=== PATIENT | male | born 1945 | race Caucasian/White ===

== ENCOUNTER 2016-09-15 16:23 | Emergency (ER) | payer OTHER ==
[2016-09-15] VITALS (7 sets, daily range): BP systolic 130–158; BP diastolic 69–89; PULSE 90–99; RESP 16; TEMP 98.8; O2SAT 93–98
[~2016-09-15] VITALS: Ht 170.2 cm; Wt 68.0 kg
[~2016-09-15 16:23] MED LIST: ASPI81TA82 PO; INHALER PO; OXYC10TA8 PO; PANT40P IVP; TRAZ50TA4 PO; [UNRECOGNIZED DRUG - REMARK] PO
--- NOTE | 2016-09-15 16:39 | PD ---
HPI Chief Complaint: AMS Time Seen by Provider: 16:32 Travel History International Travel<30 days: No Contact w/Intl Traveler<30days: No History of Present Illness HPI 71yo M with PMH of COPD, TIA, IBS, Hep C presents to the ED with c/o not acting like himself today. Neighbor called EVAC because pt was walking around and seemed out of it. Pt states he does not remember doing that. states that she found him to be more aggressive than normal at about 12pm today. However, pt is back at baseline right now. Pt has been having cold symptoms with cough and nasal congestion and has been taking over the counter medications that he does not know the names of. Pt also takes oxycodone x2 daily and took it today. Denies any trauma, headache, visual changes, chest pain, sob, vomiting, abdominal pain, focal weakness or numbness. +Some nausea. PFSH Past Medical History Arthritis: Yes Asthma: No Autoimmune Disease: No Blood Disorders: No Anxiety: Yes Cancer: No Cardiovascular Problems: No High Cholesterol: Yes Chemotherapy: No COPD: No Diminished Hearing: No Endocrine: No Gastrointestinal Disorders: Yes GERD: No Genitourinary: No Hepatitis: Yes (HEP C ) Hiatal Hernia: No Musculoskeletal: Yes Neurologic: No Psychiatric: No Reproductive: No Respiratory: Yes (BRONCHITIS) Immunizations Current: Yes Radiation Therapy: No Sleep Apnea: No Ulcer: No Past Surgical History Abdominal Surgery: No Cardiac Surgery: No Ear Surgery: No Endocrine Surgery: No Eye Surgery: No Genitourinary Surgery: No Gynecologic Surgery: No Oral Surgery: No Thoracic Surgery: No Tonsillectomy: Yes Other Surgery: Yes (ESOPHAGEAL DILITATION X 2) Social History Alcohol Use: No Tobacco Use: No (QUIT 1995) Substance Use: No Allergies-Medications (Allergen,Severity, Reaction): Coded Allergies: Zosyn (Verified Allergy, Severe, HIVES, 09/15/16) Reported Meds & Prescriptions Reported Meds & Active Scripts Active Prednisone 20 Mg Tab 20 Mg PO BID 5 Days Levaquin (Levofloxacin) 750 Mg Tab 750 Mg PO DAILY 5 Days Ventolin Hfa 18 GM Inh (Albuterol Sulfate) 90 Mcg/Act Aer 2 Puff INH Q4H PRN Reported Oxycodone (Oxycodone HCl) 10 Mg Tab 10 Mg PO BID PRN Multi-Vitamin Daily (Multiple Vitamin) 1 Tab Tab 1 Tab PO DAILY Aspirin 81 Mg Tabdr 81 Mg PO DAILY Protonix (Pantoprazole Sodium) 40 Mg Inj 40 Mg IVP Q24H Trazodone Hcl (Trazodone HCl) 50 Mg Tab 50 Mg PO HS [Inhaler] 1 Puff PO Q4-6H [Prostate Medicine] 1 Tab PO HS Review of Systems Except as stated in HPI: all other systems reviewed are Neg Physical Exam Narrative GENERAL: 71yo M not in distress. SKIN: Warm and dry. HEAD: Atraumatic. Normocephalic. EYES: Pupils equal and round. No scleral icterus. No injection or drainage. ENT: No nasal bleeding or discharge. Mucous membranes pink and moist. NECK: Trachea midline. No JVD. CARDIOVASCULAR: Regular rate and rhythm. No murmur appreciated. RESPIRATORY: No accessory muscle use. Coarse breath sounds bilaterally. Mild expiratory wheezing. GASTROINTESTINAL: Abdomen soft, non-tender, nondistended. Hepatic and splenic margins not palpable. MUSCULOSKELETAL: No obvious deformities. No clubbing. No cyanosis. No edema. NEUROLOGICAL: Awake and alert. No obvious cranial nerve deficits. Motor grossly within normal limits. Normal speech. PSYCHIATRIC: Appropriate mood and affect; insight and judgment normal. Data Data Last Documented VS Vital Signs Date Time Temp Pulse Resp B/P Pulse Ox O2 Delivery O2 Flow Rate FiO2 09/15/16 20:57 85 16 153/85 95 09/15/16 18:45 Nasal Cannula 2 09/15/16 16:58 98.8 Orders Complete Blood Count With Diff (09/15/16 16:33) Basic Metabolic Panel (Bmp) (09/15/16 16:33) Troponin I (09/15/16 16:33) Iv Access Insert/Monitor (09/15/16 16:33) Electrocardiogram (09/15/16 16:33) Ecg Monitoring (09/15/16 16:33) Oximetry (09/15/16 16:33) Chest, Single Ap (09/15/16 16:33) Sodium Chloride 0.9% Flush (Ns Flush) (09/15/16 16:45) Methylprednisolone So Succ Inj (Solumedr (09/15/16 16:45) Albuterol-Ipratropium Neb (Duoneb Neb) (09/15/16 16:45) Ct Brain W/O Iv Contrast(Rout) (09/15/16 ) Magnesium (Mg) (09/15/16 16:33) Urinalysis - C+S If Indicated (09/15/16 17:52) Blood Culture (09/15/16 18:24) Lactic Acid Sepsis Protocol (09/15/16 18:24) Arterial Blood Gas (Abg) (09/15/16 ) Influenzae A/B Antigen (09/15/16 18:24) Levofloxacin 750 Mg Premix Inj (Levaquin (09/15/16 19:00) Labs Laboratory Tests Test 09/15/16 09/15/16 09/15/16 09/15/16 17:15 18:33 18:40 19:35 White Blood Count 21.8 TH/MM3 Red Blood Count 4.22 MIL/MM3 Hemoglobin 13.1 GM/DL Hematocrit 38.5 % Mean Corpuscular Volume 91.3 FL Mean Corpuscular Hemoglobin 31.0 PG Mean Corpuscular Hemoglobin 33.9 % Concent Red Cell Distribution Width 11.9 % Platelet Count 232 TH/MM3 Mean Platelet Volume 9.1 FL Neutrophils (%) (Auto) % Lymphocytes (%) (Auto) % Monocytes (%) (Auto) % Eosinophils (%) (Auto) % Basophils (%) (Auto) % Neutrophils # (Auto) TH/MM3 Lymphocytes # (Auto) TH/MM3 Monocytes # (Auto) TH/MM3 Eosinophils # (Auto) TH/MM3 Basophils # (Auto) TH/MM3 CBC Comment AUTO DIFF Differential Total Cells 100 Counted Neutrophils % (Manual) 85 % Band Neutrophils % 4 % Lymphocytes % 5 % Monocytes % 6 % Neutrophils # (Manual) 19.4 TH/MM3 Differential Comment FINAL DIFF MANUAL Platelet Estimate NORMAL Platelet Morphology Comment NORMAL Red Cell Morphology Comment NORMAL Sodium Level 146 MEQ/L Potassium Level 3.7 MEQ/L Chloride Level 111 MEQ/L Carbon Dioxide Level 28.6 MEQ/L Anion Gap 6 MEQ/L Blood Urea Nitrogen 17 MG/DL Creatinine 1.30 MG/DL Estimat Glomerular Filtration 54 ML/MIN Rate Random Glucose 87 MG/DL Calcium Level 8.4 MG/DL Magnesium Level 1.9 MG/DL Troponin I LESS THAN 0.02 NG/ML Blood Gas Puncture Site RT RADIAL Blood Gas Patient Temperature 98.6 Blood Gas HCO3 25 mmol/L Blood Gas Base Excess 0.6 mmol/L Blood Gas Oxygen Saturation 89 % Arterial Blood pH 7.38 Arterial Blood Partial 43 mmHG Pressure CO2 Arterial Blood Partial 69 mmHG Pressure O2 Arterial Blood Oxygen Content 16.3 Vol % Arterial Blood 1.5 % Carboxyhemoglobin Arterial Blood Methemoglobin 1.2 % Blood Gas Hemoglobin 13.0 G/DL Oxygen Delivery Device NONE Blood Gas Inspired Oxygen 21 % Lactic Acid Level 1.8 mmol/L Urine Color YELLOW Urine Turbidity SLIGHT Urine pH 5.5 Urine Specific [place] 1.019 Urine Protein TRACE mg/dL Urine Glucose (UA) NEG mg/dL Urine Ketones TRACE mg/dL Urine Occult Blood NEG Urine Nitrite NEG Urine Bilirubin NEG Urine Leukocyte Esterase NEG Urine RBC 0-3 /hpf Urine WBC 3-5 /hpf Urine Squamous Epithelial 6-8 /hpf Cells Urine Amorphous Sediment FEW Urine Bacteria NONE /hpf Microscopic Urinalysis Comment CULT NOT INDICATED MDM Medical Decision Making Medical Screen Exam Complete: Yes Emergency Medical Condition: Yes Interpretation(s) EKG: NSR 82bpm. Normal axis. No ST segment elevation or depression. Differential Diagnosis AMS secondary to medications vs. electrolyte abnormality vs. ICH COPD exacerbation vs. Pneumonia Narrative Course 71yo M with AMS today. As per , he was acting strange and aggressive. Pt is back to baseline now as per . Pt is AAOx3 and does not appear altered on my exam. VS stable. Pt had wheezing and coarse breath sound on exam so duonebs x3 and methylprednisolone 125mg IV given. Pt has COPD and has been having cold symptoms for 2 weeks. Labs reviewed, leukocytosis at 21.8. Denies any steroid use. Only source of infection on my exam is respiratory. Troponin negative. CXR showed hypoaerated lungs without evidence of consolidating airspace disease. Interstitial prominence left lung base. Although there is no consolidating airspace on radiology read, I evaluated the CXR and felt that left heart border appears hazy. Clinically I will treat for pneumonia. Pt given 750mg IV levaquin. UA showed no leukocyte or nitrite. Pt reevaluated at bedside. States he feels better after the treatments. Pt still with mild wheezing on exam. ABG on room air showed O2 sat 89%. Pt does not have oxygen at home. I would like to admit pt for observation for COPD exacerbation but pt is refusing to stay. Pt is speaking in complete sentences and not altered on my exam. I feel that pt has decision making capacity. AMA: The risks of leaving against medical advice without further evaluation treatment were discussed with the patient. These risks include cardiac dysfunction, cardiac dysrhythmia, possible heart attack, possible stroke or . The patient indicated understanding of these risks and appeared to have the capacity to make this decision. Diagnosis Primary Impression: COPD exacerbation Patient Instructions: General Instructions Departure Forms: Tests/Procedures Additional Instructions: Please follow up with your PMD in 1-2 days. Return to the ED if symptoms worsen. Med/Other Pt SpecificInfo: Prescription(s) given Scripts Prednisone 20 Mg Tab20 Mg PO BID 5 Days Ref 0 Prov:So Koo DO 09/15/16 Levofloxacin (Levaquin)750 Mg [id number] Mg PO DAILY 5 Days Ref 0 Prov:So Koo DO 09/15/16 Albuterol 18 GM Inh (Ventolin Hfa 18 GM Inh)90 Mcg/Act Aer2 Puff INH Q4H PRN ( SHORTNESS OF BREATH) #1 INHALER Ref 0 Prov:So Koo DO 09/15/16 Disposition: 07 AGAINST MEDICAL ADVICE Condition: Stable So Koo DO Sep 15, 2016 16:39
[2016-09-15] MEDS ORDERED: methylPREDNISolone SOD SUCC 125 MG/2 ML VIAL IVP ONE (16:45)
[2016-09-15] MEDS ORDERED: OXYC-395 PO (16:50)
[2016-09-15] MEDS ORDERED: ASPI1TAB69 PO (16:50)
[2016-09-15] MEDS ORDERED: MULT-65 PO (16:50)
--- NOTE | 2016-09-15 17:23 | RADHPO ---
EXAM DATE/TIME: 09/15/2016 16:39 [facility] COMPARISON: CHEST SINGLE AP, September 28, 2014, 22:49. INDICATIONS : Cough. MEDICAL HISTORY : None. SURGICAL HISTORY : None. ENCOUNTER: Initial ACUITY: 1 day PAIN SCORE: 0/10 LOCATION: Bilateral upper chest FINDINGS: The lungs are hypoaerated. There is mild interstitial prominence in the left base. Right lung is alonzo r. Heart and mediastinal structures appear stable. Osseous structures are intact. CONCLUSION: Hypoaerated lungs without evidence of consolidating airspace disease. Interstitial prominence left lung base. Khai Triana MD on September 15, 2016 at 17:19 Board Certified Radiologist. This report was verified electronically.
[2016-09-15 17:24] LABS: HEMATOCRIT 38.5 % (39.0-51.0); HEMO FLAGS AUTO DIFF; MEAN CELL VOLUME 91.3 FL (80.0-100.0); MEAN CORPUSCULAR HGB CONC 33.9 % (32.0-36.0); PLATELET COUNT 232 TH/MM3 (150-450); RED BLOOD COUNT 4.22 MIL/MM3 (4.50-5.90); RED CELL DISTRIBUTION WIDTH 11.9 % (11.6-17.2); WHITE BLOOD COUNT 21.8 TH/MM3 (4.0-11.0)
[2016-09-15] MEDS: RESP: ALBUTEROL 2.5 MG/IPRATROPIUM 0.5 MG NEB (SCH) INH ×2 (17:25→17:45)
[2016-09-15 17:29] LABS: CHLORIDE 111 MEQ/L (98-107); POTASSIUM 3.7 MEQ/L (3.5-5.1); SODIUM (NA) 146 MEQ/L (136-145)
[2016-09-15 17:32] LABS: ANION GAP 6 MEQ/L (5-15); BICARBONATE 28.6 MEQ/L (21.0-32.0); BLOOD UREA NITROGEN 17 MG/DL (7-18); MAGNESIUM 1.9 MG/DL (1.5-2.5)
[2016-09-15 17:35] LABS: GLOMERULAR FILTRATION RATE 54 ML/MIN (>89)
[2016-09-15 17:41] LABS: BANDS 4 % (0-6); NEUTROPHIL # MANUAL DIFF 19.4 TH/MM3 (1.8-7.7); PLATELET ESTIMATE SMEAR NORMAL (NORMAL); PLATELET MORPHOLOGY NORMAL (NORMAL); POLYS (SEG NEUTROPHILS) 85 % (16-70); SCAN/DIFF FINAL DIFF MANUAL; WBC DIFF SAMPLE 100
[2016-09-15] MEDS: SODIUM CHLORIDE 0.9% FLUSH 5 ML FLUSH IVF PRN ×2 (17:54→19:16)
--- NOTE | 2016-09-15 18:29 | RADHPO ---
EXAM DATE/TIME: 09/15/2016 18:01 [facility] COMPARISON: CT BRAIN W/O CONTRAST, September 19, 2014, 8:32. INDICATIONS : Altered mental status. RADIATION DOSE: 54.26 CTDIvol (mGy) MEDICAL HISTORY : Cerebrovascular disease. Chronic obstructive pulmonary disease. Diabetes mellitus type 2. SURGICAL HISTORY : None. ENCOUNTER: Initial ACUITY: 1 day PAIN SCALE: 0/10 LOCATION: cranial TECHNIQUE: Multiple contiguous axial images were obtained of the head. Using automated exposure control and adj ustment of the mA and/or kV according to patient size, radiation dose was kept as low as reasonably a chievable to obtain optimal diagnostic quality images. FINDINGS: CEREBRUM: The ventricles are normal for age. No evidence of midline shift, mass lesion, hemorrhage or acute in farction. No extra-axial fluid collections are seen. POSTERIOR FOSSA: The cerebellum and brainstem are intact. The 4th ventricle is midline. The cerebellopontine angle i s unremarkable. EXTRACRANIAL: The visualized portion of the orbits is intact. SKULL: The calvaria is intact. No evidence of skull fracture. CONCLUSION: Normal examination for a patient of this age. No significant change has occurred. Charly Thomas MD on September 15, 2016 at 18:27 Board Certified Radiologist. This report was verified electronically.
[2016-09-15 18:40] LABS: BLOOD GAS BASE EXCESS 0.6 mmol/L (-2-2); BLOOD GAS CARBOXYHEMOGLOBIN 1.5 % (0-4); BLOOD GAS HCO3 25 mmol/L (22-26); BLOOD GAS METHEMOGLOBIN 1.2 % (0-2); BLOOD GAS O2 HGB SATURATION 89 % (90-100); BLOOD GAS OXYGEN CONTENT 16.3 Vol % (12.0-20.0); BLOOD GAS PCO2 43 mmHG (38-42); BLOOD GAS PO2 69 mmHG (61-120); CRITICAL VALUE YES; DRAW SITE RT RADIAL; FIO2 21 %; NUMBER OF ARTERIAL PUNCTURES 1; STAT YES; TEMP CORR TO 98.6; ULNAR PULSE PRESENT
[2016-09-15] MEDS ORDERED: LEVOFLOXACIN 750 MG PREMIX INJ 150 ML IV ONE (19:00)
[2016-09-15] MEDS ORDERED: VENTAER INH (19:06)
[2016-09-15] MEDS ORDERED: LEVA750T PO (19:06)
[2016-09-15] MEDS ORDERED: PRED20 PO (19:06)
[2016-09-15 19:47] LABS: BLOOD, URINE NEG (NEG); GLUCOSE,URINE NEG (NEG); KETONE, URINE TRACE mg/dL (NEG); NITRITE,URINE NEG (NEG); PH, URINE 5.5 (5.0-8.5)
[2016-09-15 19:53] LABS: RBC, URINE 0-3 /hpf (0-3); URINE COLOR YELLOW (YELLW/STRAW)
[2016-09-15 19:54] LABS: COMMENT (UR) CULT NOT INDICATED; CULTURE IF INDICATED CULT NOT INDICATED
--- NOTE | 2016-09-17 07:28 | EKG ---
Date Performed: 09/15/2016 Time Performed: 17:13:00 PTAGE: 71 years EKG: Sinus rhythm Compared to the previous tracing R wave progression has improved Normal ECG PREVIOUS TRACING : 01/13/2016 16.15 DOCTOR: John Fried Interpretating Date/Time 09/17/2016 07:26:27
== END 2016-09-15 21:01 | disposition left against medical advice (07) ==
LOC: PHED 16:23
DX: J44.1 Chronic obstructive pulmonary disease with (acute) exacerbation (principal); R41.82 Altered mental status, unspecified; E78.00 Pure hypercholesterolemia, unspecified; B19.20 Unspecified viral hepatitis C without hepatic coma
CPT/HCPCS: 36600; 70450; 71010; 80048; 81001; 82805; 83605; 83735; 84484; 85007; 85027; 87040; 87804; 93005; 94640; 94664; 96365; 96366; 96375; 99285; J1956; J2930

== ENCOUNTER 2016-09-19 07:06 | Inpatient (IN) | payer MEDICAID, MEDICARE, OTHER ==
[~2016-09-19] VITALS: Ht 170.2 cm; Wt 72.3 kg
[2016-09-19] VITALS (8 sets, daily range): BP systolic 119–176; BP diastolic 57–95; PULSE 56–70; RESP 15–22; TEMP 95.7–97.8; O2SAT 95–97
[~2016-09-19 07:06] MED LIST changes: +ASPI1TAB69 PO; -ASPI81TA82 PO; +LEVA750T PO; +MULT-65 PO; +OXYC-395 PO; -OXYC10TA8 PO; +PRED20 PO; +VENTAER INH
[2016-09-19] MEDS ORDERED: SODIUM CHLOR 0.9% 1000 ML INJ 1,000 ML IV SCH (07:23)
[2016-09-19] MEDS ORDERED: TRAZ50TA12 PO (07:24)
[2016-09-19] MEDS ORDERED: HYDROmorphone HCL PF 2 MG/ML VIAL IVS ONE (07:30)
[2016-09-19] MEDS ORDERED: SODIUM CHLORIDE 0.9% FLUSH 5 ML FLUSH IVF PRN ×2 (07:30→16:45)
[2016-09-19] MEDS ORDERED: ONDANSETRON HCL 4 MG/2 ML VIAL IVP ONE (07:30)
--- NOTE | 2016-09-19 07:41 | PD ---
HPI Chief Complaint: Abdominal Pain Time Seen by Provider: 07:19 Travel History International Travel<30 days: No Contact w/Intl Traveler<30days: No Traveled to known affect area: No History of Present Illness HPI This is a 71-year-old man who presents to the emergency department complaining of severe abdominal pain. Pain is fairly generalized. It started abruptly this morning after drinking coffee. He never had it before. Some nausea but no vomiting. No chest pain or trouble breathing. He otherwise had been feeling generally well and healthy. He was seen for COPD exacerbation couple days ago and this is generally improving although he still has some symptoms. He was on a PPI in the past. He denies having history of reflux although he states he has to warm milk to drink it because of stomach cramps otherwise. His states he has reflux problems. His never pain like this with it. Denies any other new or worsening symptoms. History Past Medical History Narrative Medical Hepatitis C, status [facility] COPD History of esophageal strictures with impaction Social History Alcohol Use: Yes (occas drinks) Tobacco Use: No (QUIT 1996 smoked 2 ppd cigs) Allergies-Medications (Allergen,Severity, Reaction): Coded Allergies: Zosyn (Verified Allergy, Severe, HIVES, 09/19/16) Reported Meds & Prescriptions Reported Meds & Active Scripts Active Prednisone 20 Mg Tab 20 Mg PO BID 5 Days Levaquin (Levofloxacin) 750 Mg Tab 750 Mg PO DAILY 5 Days Ventolin Hfa 18 GM Inh (Albuterol Sulfate) 90 Mcg/Act Aer 2 Puff INH Q4H PRN Reported Trazodone (Trazodone HCl) 50 Mg Tab 50 Mg PO HS Oxycodone (Oxycodone HCl) 10 Mg Tab 10 Mg PO BID PRN Multi-Vitamin Daily (Multiple Vitamin) 1 Tab Tab 1 Tab PO DAILY Aspirin 81 Mg Tabdr 81 Mg PO DAILY [Prostate Medicine] 1 Tab PO HS Review of Systems Except as stated in HPI: all other systems reviewed are Neg Physical Exam Narrative GENERAL: 71-year-old man, appears uncomfortable, grimacing. SKIN: Warm and dry. HEAD: Atraumatic. Normocephalic. EYES: Pupils equal and round. No scleral icterus. No injection or drainage. ENT: No nasal bleeding or discharge. Mucous membranes pink and moist. NECK: Trachea midline. No JVD. CARDIOVASCULAR: Regular rate and rhythm. No murmur appreciated. RESPIRATORY: No accessory muscle use. Clear to auscultation. Breath sounds equal bilaterally. GASTROINTESTINAL: Abdomen soft flat, tense. He has epigastric tenderness. He has a lot of voluntary guarding but denies significant tenderness. States that it just hurts all over whether I palpate or not. MUSCULOSKELETAL: No obvious deformities. No edema. NEUROLOGICAL: Awake and alert. No obvious cranial nerve deficits. Motor grossly within normal limits. Normal speech. PSYCHIATRIC: Appropriate mood and affect; insight and judgment normal. Data Data Last Documented VS Vital Signs Date Time Temp Pulse Resp B/P Pulse Ox O2 Delivery O2 Flow Rate FiO2 09/19/16 09:47 57 18 149/79 96 Room Air 09/19/16 07:09 97.8 Orders Complete Blood Count With Diff (09/19/16 07:23) Comprehensive Metabolic Panel (09/19/16 07:23) Lipase (09/19/16 07:23) Lactic Acid (09/19/16 07:23) Prothrombin Time / Inr (Pt) (09/19/16 07:23) Act Partial Throm Time (Ptt) (09/19/16 07:23) Urinalysis - C+S If Indicated (09/19/16 07:23) Ct Abd/Pel W Iv Contrast(Rout) (09/19/16 07:23) Iv Access Insert/Monitor (09/19/16 07:23) Ecg Monitoring (09/19/16 07:23) Oximetry (09/19/16 07:23) NPO (09/19/16 07:23) Hydromorphone Pf Inj (Dilaudid Pf Inj) (09/19/16 07:30) Ondansetron Inj (Zofran Inj) (09/19/16 07:30) Sodium Chlor 0.9% 1000 Ml Inj (Ns 1000 M (09/19/16 07:23) Sodium Chloride 0.9% Flush (Ns Flush) (09/19/16 07:30) Electrocardiogram (09/19/16 07:23) Ed Poc Ultrasound (09/19/16 07:23) Iohexol 350 Inj (Omnipaque 350 Inj) (09/19/16 08:44) Us Abdomen Gallbladder (09/19/16 ) Admit Order (Ed Use Only) (09/19/16 ) Labs Laboratory Tests Test 09/19/16 09/19/16 07:30 09:16 White Blood Count 11.8 TH/MM3 Red Blood Count 4.46 MIL/MM3 Hemoglobin 13.9 GM/DL Hematocrit 41.0 % Mean Corpuscular Volume 92.0 FL Mean Corpuscular Hemoglobin 31.1 PG Mean Corpuscular Hemoglobin 33.9 % Concent Red Cell Distribution Width 12.3 % Platelet Count 252 TH/MM3 Mean Platelet Volume 9.8 FL Neutrophils (%) (Auto) 79.4 % Lymphocytes (%) (Auto) 15.6 % Monocytes (%) (Auto) 4.1 % Eosinophils (%) (Auto) 0.5 % Basophils (%) (Auto) 0.4 % Neutrophils # (Auto) 9.4 TH/MM3 Lymphocytes # (Auto) 1.8 TH/MM3 Monocytes # (Auto) 0.5 TH/MM3 Eosinophils # (Auto) 0.1 TH/MM3 Basophils # (Auto) 0.0 TH/MM3 CBC Comment DIFF FINAL Differential Comment Prothrombin Time 11.2 SEC Prothromb Time International 1.0 RATIO Ratio Activated Partial 24.9 SEC Thromboplast Time Sodium Level 141 MEQ/L Potassium Level 3.7 MEQ/L Chloride Level 107 MEQ/L Carbon Dioxide Level 23.8 MEQ/L Anion Gap 10 MEQ/L Blood Urea Nitrogen 26 MG/DL Creatinine 1.10 MG/DL Estimat Glomerular Filtration 66 ML/MIN Rate Random Glucose 116 MG/DL Lactic Acid Level 1.4 mmol/L Calcium Level 9.0 MG/DL Total Bilirubin 0.5 MG/DL Aspartate Amino Transf 12 U/L (AST/SGOT) Alanine Aminotransferase 19 U/L (ALT/SGPT) Alkaline Phosphatase 66 U/L Total Protein 7.4 GM/DL Albumin 3.7 GM/DL Lipase 303 U/L Urine Color YELLOW Urine Turbidity CLEAR Urine pH 5.5 Urine Specific [place] 1.032 Urine Protein NEG mg/dL Urine Glucose (UA) NEG mg/dL Urine Ketones NEG mg/dL Urine Occult Blood NEG Urine Nitrite NEG Urine Bilirubin NEG Urine Leukocyte Esterase NEG Urine WBC 0-2 /hpf Urine Squamous Epithelial 0-5 /hpf Cells Urine Bacteria OCC /hpf Urine Mucus FEW /lpf Microscopic Urinalysis Comment CULT NOT INDICATED MDM Medical Decision Making Medical Screen Exam Complete: Yes Emergency Medical Condition: Yes Interpretation(s) LABS: CBC remarkable for mild leukocytosis. CMP unremarkable. Lactate 1.4 Lipase normal Coags unremarkable CT abdomen and pelvis: Gallstone. Mild dilatation international hepatic biliary ducts. 1.2 severe hypodensity identified posterior aspect of right over the liver. On specific. Likely cyst or hemangioma. Clonic diverticula in the proximal sigmoid colon with thickening in this region likely related to hypertrophy. Significant surrounding inflammatory changes not seen. Gallbladder ultrasound: Gallstone. Mild dilatation the common bile duct. 1.3 cm solid mass in the right over the liver, recommend outpatient follow-up. Differential Diagnosis Pancreatitis, gastritis, aortic pathology, cholecystitis, other Narrative Course Medical decision making INITIAL: Is a 71-year-old male presents emergency Department uncomfortable with diffuse abdominal pain, although he seems to have more epigastric pain than anything else. He also seems to have some epigastric tenderness but this isn't at all clear. He's tensing a lot. Some concern for aortic pathology. I attempted a bedside ultrasound because of his guarding and some air in the bowels and was unable to obtain satisfactory use although grossly didn't see any AAA. We'll give pain medicine, fluids, CT, reassess. Suspect gastritis or pancreatitis. FINAL: Imaging shows a large gallbladder with stone in the neck with minimally thickened gallbladder wall and ultrasound, but not a lot of surrounding inflammatory change, or severe tenderness. I think however cholecystitis is best expiration for the patient's symptoms. I spoke with Dr. allyssa Coats, who is agreeable to admit the patient for cholecystectomy. Procedures Procedure Narrative Point of care ultrasound: Focus transabdominal ultrasounds performed at the bedside to evaluate for possible AAA. Due to guarding and bowel gas, was unable to obtain satisfactory views of the aorta. Diagnosis Primary Impression: Acute cholecystitis Kaleb Hough MD Sep 19, 2016 07:41
[2016-09-19 08:05] LABS: AUTOMATED NEUTROPHIL # 9.4 TH/MM3 (1.8-7.7); BASOPHIL % 0.4 % (0.0-2.0); EOSINOPHIL # 0.1 TH/MM3 (0-0.4); EOSINOPHIL % 0.5 % (0.0-4.0); LYMPH % 15.6 % (9.0-44.0); LYMPHOCYTE # 1.8 TH/MM3 (1.0-4.8); MEAN CORPUSCULAR HEMOGLOBIN 31.1 PG (27.0-34.0); MEAN CORPUSCULAR HGB CONC 33.9 % (32.0-36.0); MONO % 4.1 % (0.0-8.0); NEUT % 79.4 % (16.0-70.0); PLATELET COUNT 252 TH/MM3 (150-450); RED BLOOD COUNT 4.46 MIL/MM3 (4.50-5.90); RED CELL DISTRIBUTION WIDTH 12.3 % (11.6-17.2); WHITE BLOOD COUNT 11.8 TH/MM3 (4.0-11.0)
[2016-09-19 08:14] LABS: CHLORIDE 107 MEQ/L (98-107); POTASSIUM 3.7 MEQ/L (3.5-5.1); SODIUM (NA) 141 MEQ/L (136-145)
[2016-09-19 08:16] LABS: HEMO FLAGS DIFF FINAL
[2016-09-19 08:18] LABS: ANION GAP 10 MEQ/L (5-15); APTT (PATIENT) 24.9 SEC (24.3-30.1); BICARBONATE 23.8 MEQ/L (21.0-32.0); BLOOD UREA NITROGEN 26 MG/DL (7-18); PROTHROMBIN TIME - PATIENT 11.2 SEC (9.8-11.6)
[2016-09-19 08:21] LABS: ALT (GPT) 19 U/L (12-78); AST (GOT) 12 U/L (15-37); GLOMERULAR FILTRATION RATE 66 ML/MIN (>89)
[2016-09-19 08:23] LABS: TOTAL BILIRUBIN ADULT 0.5 MG/DL (0.2-1.0)
[2016-09-19 08:24] LABS: ALKALINE PHOSPHATASE 66 U/L (45-117)
[2016-09-19] MEDS ORDERED: IOHEXOL 350 MG/ML 10 ML VIAL (for RAD DIAG) IV ONE (08:44)
[2016-09-19 09:26] LABS: BLOOD, URINE NEG (NEG); GLUCOSE,URINE NEG (NEG); KETONE, URINE NEG (NEG); NITRITE,URINE NEG (NEG); PH, URINE 5.5 (5.0-8.5)
--- NOTE | 2016-09-19 09:26 | RADHPO ---
EXAM DATE/TIME: 09/19/2016 08:34 [facility] COMPARISON: No previous studies available for comparison. INDICATIONS: Diffuse abdominal pain. Nausea. IV CONTRAST: 85 cc Omnipaque 350 (iohexol) IV ORAL CONTRAST: No oral contrast ingested. RADIATION DOSE: 7.41 CTDIvol (mGy) MEDICAL HISTORY: Cerebrovascular disease. Chronic obstructive pulmonary disease. Hepatitis C. SURGICAL HISTORY: Esophageal dilatation. ENCOUNTER: Initial ACUITY: 1 day PAIN SCALE: 5/10 LOCATION: Diffuse abdomen. TECHNIQUE: Volumetric scanning of the abdomen and pelvis was performed. Using automated exposure control and ad justment of the mA and/or kV according to patient size, radiation dose was kept as low as reasonably achievable to obtain optimal diagnostic quality images. FINDINGS: There is a 1.2 cm hypodensity seen at the posterior aspect of the right lobe of the liver. It is non specific. Statistically it likely represents a cyst or hemangioma. There is mild dilatation of the central int rahepatic biliary ducts. The patient does have a gallstone seen in the gallbladder. The gallbladder is moderately dis tended. Significant inflammatory change around the gallbladder is not seen. The common bile duct is mildly p rominent measuring 9 mm. The pancreas, adrenals glands, spleen and kidneys appear grossly normal. Atheroscle rotic calcifications are seen throughout the arterial system but no aneurysm is seen. There are diverticula particularly in the proximal sigmoid colon. There is some thickening of the si gmoid colon in this region which could be related to hypertrophy. Significant surrounding inflammatory change is not seen. The bowel is otherwise unremarkable. The pelvic structures appear grossly intact. There is some mild increased density at the posterior medial left lung base. The right lung base is grossly clear. No focal bone lesions are seen. CONCLUSION: 1. Gallstone. 2. Mild dilatation of the intra and extrahepatic biliary ducts. This can be correlated with any pot ential signs of cholestasis. 3. A 1.2 cm hypodensity identified in the posterior aspect of the right lobe of the liver. This is nonspecific. Statistically it likely represents a cyst or hemangioma. 4. Colonic diverticula in the proximal sigmoid colon with thickening of this region likely related t o hypertrophy. Significant surrounding inflammatory change is not seen. 5. Minimal suspected consolidation or atelectasis at the posterior medial left lung base. Getachew Batres MD on September 19, 2016 at 9:09 Board Certified Radiologist. This report was verified electronically.
[2016-09-19 09:30] LABS: URINE COLOR YELLOW (YELLW/STRAW)
[2016-09-19 09:34] LABS: MUCUS URINE FEW /lpf (OCC)
[2016-09-19 09:35] LABS: BACTERIA, URINE OCC /hpf; COMMENT (UR) CULT NOT INDICATED; CULTURE IF INDICATED CULT NOT INDICATED; SQUAMOUS EPITHELIAL CELL URINE 0-5 /hpf (0-5); WBC, URINE 0-2 /hpf (0-5)
--- NOTE | 2016-09-19 10:05 | RADHPO ---
EXAM DATE/TIME: 09/19/2016 09:23 [facility] COMPARISON: CT ABDOMEN & PELVIS W CONTRAST, September 19, 2016, 8:34. INDICATIONS : Gallstones. MEDICAL HISTORY : Hypercholesterolemia. Chronic obstructive pulmonary disease. Arthritis. TIA. Prosthesis. Borderline d iabetes. Hep C. Depression. Anxiety. SURGICAL HISTORY : Tonsillectomy. Nose reconstruction. Pins in right knee. Rods in left lower leg. Plate top of left foot. Esophageal dilation. ENCOUNTER: Initial ACUITY: 1 day PAIN SCORE: 10/10 LOCATION: Right upper quadrant MEASUREMENTS: LIVER: 17.2 cm length COMMON DUCT: 9 mm RIGHT KIDNEY: 10.8 x 4.5 x 4.6 cm FINDINGS: LIVER: The liver demonstrates normal echotexture. There is a 1.3 cm hypoechoic solid mass in the right lobe corresponding to the mass seen on the CT. This is not a cyst. COMMON DUCT: A. common bile duct is mildly distended at 9 mm. No focal filling defect is seen. GALLBLADDER: There is a 1.5 cm gallstone seen in the gallbladder neck. The gallbladder wall is upper limits of nor mal for thickness. PANCREAS: The visualized portions are within normal limits. RIGHT KIDNEY: No evidence of hydronephrosis, stone, or mass. CONCLUSION: 1. Gallstone 2. Mild dilatation of common bile duct. 3. 1.3 cm solid mass in the right lobe of the liver. The solid mass could be further evaluated with a MRI examination of the abdomen at some point. This could be performed as an outpatient. Getachew Batres MD on September 19, 2016 at 9:58 Board Certified Radiologist. This report was verified electronically.
[2016-09-19] MEDS ORDERED: HYDROmorphone HCL PF 1 MG/ML VIAL IV PUSH ONE (12:15)
[2016-09-19] MEDS ORDERED: NALOXONE HCL 0.4 MG/ML AMP IV PRN (16:45)
[2016-09-19] MEDS ORDERED: ONDANSETRON HCL 4 MG/2 ML VIAL IV PRN (16:45)
[2016-09-19] MEDS ORDERED: Post-op Orders (for Pharmacy) MISC XX ONE (16:45)
[2016-09-19] MEDS: MORPHINE SULFATE 4 MG/ML INJ IV PRN ×2 (17:23→21:10)
[2016-09-19] MEDS: PANTOPRAZOLE SOD 40 MG DELAYED RELEASE TAB PO SCH (17:23)
[2016-09-19] MEDS: SODIUM CHLOR 0.9% 1000 ML INJ 1,000 ML IV SCH (17:24)
[2016-09-19] MEDS: SODIUM CHLORIDE 0.9% FLUSH 5 ML FLUSH IVF SCH (20:12)
--- NOTE | 2016-09-19 20:15 | MH ---
cc: MD KAILASH,[facility] DATE OF ADMISSION: 09/19/2016 ADMITTING DIAGNOSIS: 1. Abdominal pain. 2. Cholelithiasis. 3. Nausea and vomiting. 4. COPD. HISTORY OF PRESENT ILLNESS: This 71-year-old male comes to the emergency room complaining about severe abdominal pain that started suddenly this morning after he had coffee. Nausea but no vomiting. The patient states the pain is sort of all over the abdomen, mainly in the midline and slightly to the left, not actually to the right. He states he has a history of duodenitis and has been drinking warm milk when he gets stomach cramps. He also has reflux. The question arises about possible biliary colic. PAST MEDICAL HISTORY: 1. Hepatitis C. The patient was treated with Harvoni. 2. History of COPD. 3. Esophageal strictures with extraction of foreign bodies in the past. 4. History of duodenitis and gastritis diagnosed last year when he had a gastroscopy by Dr. Saxena. SOCIAL HISTORY: The patient drinks socially. He used to smoke heavily until about 20 years ago and stopped. MEDICATIONS: 1. Trazodone. 2. Oxycodone twice a day. 3. Aspirin. PHYSICAL EXAMINATION: GENERAL: The physical examination reveals a 71-year-old gentleman in no acute distress. He is at this point in no pain. HEAD, EYES, EARS, NOSE, THROAT: Normocephalic. No trauma to the head. Pupils equal and reactive. Extraocular muscles intact. NECK: Bilateral carotid pulses. No bruits. CHEST: Bilateral breath sounds. HEART: Regular rhythm. ABDOMEN: Abdomen is soft. Active bowel sounds. The patient is not tender right now. No rebound. No guarding. But apparently he had voluntary guarding earlier when examined by the emergency room physician. On very deep palpation, I could elicit some pain just left of the midline and epigastrium. EXTREMITIES: Within normal limits. BACK: Normal. NEUROLOGIC: The patient is intact. IMPRESSION AND RECOMMENDATIONS: A 71-year-old gentleman with the above history and then CT of the abdomen findings with an 8 mm stone in the gallbladder; however, no thickening of the gallbladder and no signs of acute cholecystitis. Ultrasound shows the same and no thickening or acute changes; hence, probably cholelithiasis and possible biliary colic. At this point on one hand, I do not want to leave the patient without surgery if needs one. On the other hand, I am not quite sure that the gallbladder has anything to do with his pain. Therefore, I believe it is reasonable to do a HIDA scan and see which way this goes and decide which course to take. The patient will be admitted, will have a HIDA scan and we will go from there. Lorraine NASCIMENTO/KATERINA /7:55 PM /8:06 PM
--- NOTE | 2016-09-19 21:45 | EKG ---
Date Performed: 09/19/2016 Time Performed: 07:45:10 PTAGE: 71 years EKG: Sinus rhythm Normal ECG PREVIOUS TRACING : 09/15/2016 17.13 NO SIGNIFICANT CHANGE FROM PRIOR ELECTROCARDIOGRAM. DOCTOR: Graham Kim Interpretating Date/Time 09/19/2016 21:44:14
[2016-09-20] VITALS: BP 127/76; PULSE 57; RESP 20; TEMP 97.9; O2SAT 95
[2016-09-20] MEDS: MORPHINE SULFATE 4 MG/ML INJ IV PRN ×2 (01:34→05:39)
[2016-09-20 05:01] LABS: AUTOMATED NEUTROPHIL # 6.9 TH/MM3 (1.8-7.7); BASOPHIL % 0.4 % (0.0-2.0); EOSINOPHIL # 0.1 TH/MM3 (0-0.4); EOSINOPHIL % 1.1 % (0.0-4.0); HEMATOCRIT 37.8 % (39.0-51.0); HEMO FLAGS DIFF FINAL; LYMPH % 28.3 % (9.0-44.0); LYMPHOCYTE # 3.2 TH/MM3 (1.0-4.8); MEAN CELL VOLUME 92.9 FL (80.0-100.0); MEAN CORPUSCULAR HEMOGLOBIN 31.1 PG (27.0-34.0); MEAN CORPUSCULAR HGB CONC 33.4 % (32.0-36.0); MONO % 8.3 % (0.0-8.0); NEUT % 61.9 % (16.0-70.0); PLATELET COUNT 204 TH/MM3 (150-450); RED BLOOD COUNT 4.06 MIL/MM3 (4.50-5.90); RED CELL DISTRIBUTION WIDTH 13.2 % (11.6-17.2); WHITE BLOOD COUNT 11.2 TH/MM3 (4.0-11.0)
[2016-09-20 05:15] LABS: BICARBONATE 25.7 MEQ/L (21.0-32.0)
[2016-09-20 05:18] LABS: INDIRECT BILIRUBIN 0.6 MG/DL (0.0-0.8); TOTAL BILIRUBIN ADULT 0.7 MG/DL (0.2-1.0)
[2016-09-20] MEDS: SODIUM CHLOR 0.9% 1000 ML INJ 1,000 ML IV SCH ×3 (05:39→21:34)
[2016-09-20 08:00] VITALS: BP 122/80; PULSE 53; RESP 14; TEMP 98.3; O2SAT 96
[2016-09-20] MEDS: oxyCODONE/ACETAMINOPHEN 5 MG/325 MG TAB PO PRN ×4 (08:46→22:36)
[2016-09-20] MEDS: SODIUM CHLORIDE 0.9% FLUSH 5 ML FLUSH IVF SCH ×2 (09:00→21:34)
[2016-09-20 12:00] VITALS: BP 152/91; PULSE 62; RESP 17; TEMP 98.1; O2SAT 99
--- NOTE | 2016-09-20 13:27 | PD.CAR.PN ---
CVT Progress Note Subjective/Hospital Course: 09/20/16 Patient suspected the biliary colic versus calculus cholecystitis. Abdomen soft with active bowel sounds and now not tender to palpation Patient some pain medicine few hours ago but hasn't had pain since. Awaiting HIDA scan to evaluate the patient and if positive patient will need laparoscopic cholecystectomy Objective: Vital Signs Date Time Temp Pulse Resp B/P Pulse Ox O2 Delivery O2 Flow Rate FiO2 09/20/16 12:00 98.1 62 17 152/91 99 09/20/16 08:00 98.3 53 14 122/80 96 09/20/16 00:00 97.9 57 20 127/76 95 09/19/16 20:00 97.8 69 20 143/84 96 09/19/16 16:00 95.7 63 15 147/82 97 09/19/16 15:10 56 18 119/57 97 Room Air Labs: Laboratory Tests Test 09/20/16 04:09 White Blood Count 11.2 TH/MM3 (4.0-11.0) Red Blood Count 4.06 MIL/MM3 (4.50-5.90) Hemoglobin 12.6 GM/DL (13.0-17.0) Hematocrit 37.8 % (39.0-51.0) Mean Corpuscular Volume 92.9 FL (80.0-100.0) Mean Corpuscular Hemoglobin 31.1 PG (27.0-34.0) Mean Corpuscular Hemoglobin 33.4 % Concent (32.0-36.0) Red Cell Distribution Width 13.2 % (11.6-17.2) Platelet Count 204 TH/MM3 (150-450) Mean Platelet Volume 9.7 FL (7.0-11.0) Neutrophils (%) (Auto) 61.9 % (16.0-70.0) Lymphocytes (%) (Auto) 28.3 % (9.0-44.0) Monocytes (%) (Auto) 8.3 % (0.0-8.0) Eosinophils (%) (Auto) 1.1 % (0.0-4.0) Basophils (%) (Auto) 0.4 % (0.0-2.0) Neutrophils # (Auto) 6.9 TH/MM3 (1.8-7.7) Lymphocytes # (Auto) 3.2 TH/MM3 (1.0-4.8) Monocytes # (Auto) 0.9 TH/MM3 (0-0.9) Eosinophils # (Auto) 0.1 TH/MM3 (0-0.4) Basophils # (Auto) 0.0 TH/MM3 (0-0.2) CBC Comment DIFF FINAL Differential Comment Sodium Level 141 MEQ/L (136-145) Potassium Level 4.0 MEQ/L (3.5-5.1) Chloride Level 108 MEQ/L (98-107) Carbon Dioxide Level 25.7 MEQ/L (21.0-32.0) Anion Gap 7 MEQ/L (5-15) Blood Urea Nitrogen 13 MG/DL (7-18) Creatinine 0.88 MG/DL (0.60-1.30) Estimat Glomerular Filtration 85 ML/MIN (>89) Rate Random Glucose 94 MG/DL (74-106) Calcium Level 8.1 MG/DL (8.5-10.1) Total Bilirubin 0.7 MG/DL (0.2-1.0) Direct Bilirubin 0.1 MG/DL (0.0-0.2) Indirect Bilirubin 0.6 MG/DL (0.0-0.8) Aspartate Amino Transf 7 U/L (15-37) (AST/SGOT) Alanine Aminotransferase 15 U/L (12-78) (ALT/SGPT) Alkaline Phosphatase 51 U/L (45-117) Total Protein 5.7 GM/DL (6.4-8.2) Albumin 3.0 GM/DL (3.4-5.0) Result Diagram: 09/20/16 0409 09/20/16 0409 Lorraine Sesay MD Sep 20, 2016 13:27
--- NOTE | 2016-09-20 14:31 | RADRPT ---
EXAM DATE/TIME: 09/20/2016 12:01 [place] COMPARISON: No previous studies available for comparison. INDICATIONS : Abdominal pain with nausea. DOSE: 4.2 mCi Tc99m Mebrofenin IV MEDICAL HISTORY : Chronic obstructive pulmonary disease. Diabetes mellitus type 2. SURGICAL HISTORY : Tonsillectomy. Left leg. ENCOUNTER: Initial ACUITY: 2 days PAIN SCALE: 8/10 LOCATION: Right upper quadrant TECHNIQUE: Following the intravenous administration of radiotracer, dynamic sequential images were performed wit h continuous acquisition. FINDINGS: HEPATIC KINETICS: There is prompt uptake of radiotracer in the liver. No focal defects are seen. There is normal rate of washout from the hepatic parenchyma. BILIARY CLEARANCE: Activity is first seen in the extrahepatic biliary system at 10 minutes. There is normal excretion i nto the small bowel. GALLBLADDER: Activity is first seen in the gallbladder at 60 minutes. Common bile duct kinetics are normal and th ere is no evidence of biliary obstruction. BILIARY ENTRIC REFLUX: None observed. CONCLUSION: 1. No evidence of acute cholecystitis. 2. There is some delayed uptake of tracer activity in the gallbladder at 60 minutes. This is nonspeci fic but can be seen with chronic gallbladder disease. Charly Thomas MD on September 20, 2016 at 14:28 Board Certified Radiologist. This report was verified electronically.
[2016-09-20 16:00] VITALS: BP 164/98; PULSE 68; RESP 17; TEMP 98.2; O2SAT 96
[2016-09-20] MEDS: PANTOPRAZOLE SOD 40 MG DELAYED RELEASE TAB PO SCH (16:20)
[2016-09-20 20:00] VITALS: BP 126/71; PULSE 68; RESP 20; TEMP 97.2; O2SAT 95
[2016-09-21 00:07] VITALS: BP 130/79; PULSE 58; RESP 20; TEMP 97.8; O2SAT 95
[2016-09-21] MEDS: oxyCODONE/ACETAMINOPHEN 5 MG/325 MG TAB PO PRN ×3 (03:20→11:39)
[2016-09-21 08:00] VITALS: BP 145/79; PULSE 60; RESP 16; TEMP 96.6; O2SAT 99
[2016-09-21] MEDS: SODIUM CHLORIDE 0.9% FLUSH 5 ML FLUSH IVF SCH (09:00)
[2016-09-21] MEDS: SODIUM CHLOR 0.9% 1000 ML INJ 1,000 ML IV SCH (09:14)
[2016-09-21 12:00] VITALS: BP 174/96; PULSE 61; RESP 17; TEMP 97.2; O2SAT 97
--- NOTE | 2016-09-21 13:58 | PD.CAR.PN ---
CVT Progress Note Subjective/Hospital Course: 09/20/16 Patient suspected the biliary colic versus calculus cholecystitis. Abdomen soft with active bowel sounds and now not tender to palpation Patient some pain medicine few hours ago but hasn't had pain since. Awaiting HIDA scan to evaluate the patient and if positive patient will need laparoscopic cholecystectomy 09/21/16 VSS Abdomen soft nontender. Tolerating diet HIDA - DC patient today with FU He still may have had a biliary colic and only future will tell if the pain returns, or was unrelated. Objective: Vital Signs Date Time Temp Pulse Resp B/P Pulse Ox O2 Delivery O2 Flow Rate FiO2 09/21/16 12:00 97.2 61 17 174/96 97 09/21/16 08:00 96.6 60 16 145/79 99 09/21/16 00:07 97.8 58 20 130/79 95 09/20/16 20:00 97.2 68 20 126/71 95 09/20/16 16:00 98.2 68 17 164/98 96 Result Diagram: 09/20/16 0409 09/20/16 0409 Lorraine Sesay MD Sep 21, 2016 13:58
[2016-09-21] MEDS ORDERED: SUCRALFATE 1 GM/10 ML CUP PO ONE (14:15)
== END 2016-09-21 14:37 | disposition home or self-care (01) | DRG 446 ==
LOC: PHED 07:06 → PHEDA 09:56 → N07B 15:52
PROVIDERS: ADMIT Surgery; ATTEND Surgery
DX: K80.80 Other cholelithiasis without obstruction (principal); J44.9 Chronic obstructive pulmonary disease, unspecified; E11.9 Type 2 diabetes mellitus without complications; K29.70 Gastritis, unspecified, without bleeding; K29.80 Duodenitis without bleeding; Z79.82 Long term (current) use of aspirin; Z86.19 Personal history of other infectious and parasitic diseases; Z87.891 Personal history of nicotine dependence
CPT/HCPCS: 74177; 76705; 78226; 80048; 80053; 80076; 81001; 83605; 83690; 85025; 85610; 85730; 93005; 94150; 96361; 96374; 96375; A9537; J1170; J2270; J2405; J7030; Q9967

== ENCOUNTER 2017-12-21 04:11 | Emergency (ER) | payer MEDICAID, MEDICARE, OTHER ==
[~2017-12-21] VITALS: Ht 170.2 cm; Wt 73.1 kg
[~2017-12-21 04:11] MED LIST changes: -INHALER PO; -LEVA750T PO; -PANT40P IVP; +TRAZ50TA12 PO; -TRAZ50TA4 PO
[2017-12-21 04:15] VITALS: BP 166/105; PULSE 72; RESP 18; TEMP 97.8; O2SAT 97
[2017-12-21] MEDS ORDERED: ASPI81CH6 CHEW (04:31)
--- NOTE | 2017-12-21 04:37 | PD ---
HPI Chief Complaint: Abdominal Pain Time Seen by Provider: 04:29 Travel History International Travel<30 days: No Contact w/Intl Traveler<30days: No Traveled to known affect area: No History of Present Illness HPI patient is a 72 year old male presents to the ER with epigastric pain radiating to his back on and off for the past four days. patient states only mild nausea , no vomiting no diarrhea, no dysuria, no chest pain. States never had pain like this before. Gradually worsening overall and came in tonight for evaluation. Symptoms moderate to severe, epigastric, radiation to back, duration as above. PFSH Past Medical History Arthritis: Yes Asthma: No Autoimmune Disease: No Blood Disorders: No Anxiety: Yes Depression: Yes Cancer: No Cardiovascular Problems: No High Cholesterol: Yes Chemotherapy: No COPD: Yes Cerebrovascular Accident: Yes (tia) Diminished Hearing: No Endocrine: No Gastrointestinal Disorders: Yes GERD: No Genitourinary: No Hepatitis: Yes (hx of HEP C ) Hiatal Hernia: No Musculoskeletal: Yes Neurologic: No Psychiatric: No Reproductive: No Respiratory: Yes (COPD) Immunizations Current: Yes Radiation Therapy: No Sleep Apnea: No Ulcer: No Past Surgical History Abdominal Surgery: No Cardiac Surgery: No Ear Surgery: No Endocrine Surgery: No Eye Surgery: No Genitourinary Surgery: No Gynecologic Surgery: No Oral Surgery: Yes (nose reconstruction) Thoracic Surgery: No Tonsillectomy: Yes Other Surgery: Yes (ESOPHAGEAL DILITATION X 2) Social History Alcohol Use: Yes (occas drinks) Tobacco Use: No (QUIT 1996 smoked 2 ppd cigs) Substance Use: No Allergies-Medications (Allergen,Severity, Reaction): Coded Allergies: morphine (Verified Allergy, Severe, 12/22/17) piperacillin (Unverified Allergy, Severe, HIVES, 12/22/17) tazobactam (Unverified Allergy, Severe, HIVES, 12/22/17) Reported Meds & Prescriptions Reported Meds & Active Scripts Active Ventolin Hfa 18 GM Inh (Albuterol Sulfate) 90 Mcg/Act Aer 2 Puff INH Q4H PRN Reported Claritin (Loratadine) 10 Mg Cap 10 Mg PO DAILY Aspirin Low Dose (Aspirin) 81 Mg Chew 81 Mg CHEW DAILY Trazodone (Trazodone HCl) 50 Mg Tab 100 Mg PO HS Oxycodone (Oxycodone HCl) 10 Mg Tab 10 Mg PO BID PRN Multi-Vitamin Daily (Multiple Vitamin) 1 Tab Tab 1 Tab PO DAILY [Prostate Medicine] 1 Tab PO HS Review of Systems Except as stated in HPI: all other systems reviewed are Neg Physical Exam Narrative GENERAL: WD/WN clutching abdomen and grunting. SKIN: Warm and dry. HEAD: Atraumatic. Normocephalic. EYES: Pupils equal and round. No scleral icterus. No injection or drainage. ENT: No nasal bleeding or discharge. Mucous membranes pink and moist. NECK: Trachea midline. No JVD. CARDIOVASCULAR: Regular rate and rhythm. 2+ bilaterally equal pulses in all four extremities. No MGR. RESPIRATORY: No accessory muscle use. Clear to auscultation. Breath sounds equal bilaterally. GASTROINTESTINAL: Abdomen soft, non-tender, nondistended. Hepatic and splenic margins not palpable. No rebound nor percussive tenderness, no CVA tenderness. MUSCULOSKELETAL: Extremities without clubbing, cyanosis, or edema. No obvious deformities. NEUROLOGICAL: Awake and alert. No obvious cranial nerve deficits. Motor grossly within normal limits. Five out of 5 muscle strength in the arms and legs. Normal speech. PSYCHIATRIC: Appropriate mood and affect; insight and judgment normal. Data Data Last Documented VS Vital Signs Date Time Temp Pulse Resp B/P (MAP) Pulse Ox O2 Delivery O2 Flow Rate FiO2 12/21/17 07:14 82 18 150/70 (96) 96 Orders Orders Complete Blood Count With Diff (12/21/17 04:36) Comprehensive Metabolic Panel (12/21/17 04:36) Lipase (12/21/17 04:36) Prothrombin Time / Inr (Pt) (12/21/17 04:36) Act Partial Throm Time (Ptt) (12/21/17 04:36) Urinalysis - C+S If Indicated (12/21/17 04:36) Iv Access Insert/Monitor (12/21/17 04:36) Ecg Monitoring (12/21/17 04:36) Oximetry (12/21/17 04:36) Sodium Chloride 0.9% Flush (Ns Flush) (12/21/17 04:45) Ketorolac Inj (Toradol Inj) (12/21/17 04:45) Hydromorphone Pf Inj (Dilaudid Pf Inj) (12/21/17 05:15) Ondansetron Odt (Zofran Odt) (12/21/17 05:15) Cta Thor Abd Aorta W Iv C W3d (12/21/17 ) Lactic Acid (12/21/17 05:30) Iohexol 350 Inj (Omnipaque 350 Inj) (12/21/17 06:09) Ed Discharge Order (12/21/17 06:56) Electrocardiogram (12/21/17 04:46) Labs Laboratory Tests Test 12/21/17 04:40 12/21/17 05:35 12/21/17 06:15 White Blood Count 10.7 TH/MM3 Red Blood Count 4.31 MIL/MM3 Hemoglobin 14.1 GM/DL Hematocrit 40.5 % Mean Corpuscular Volume 93.9 FL Mean Corpuscular Hemoglobin 32.8 PG Mean Corpuscular Hemoglobin Concent 34.9 % Red Cell Distribution Width 12.4 % Platelet Count 181 TH/MM3 Mean Platelet Volume 9.4 FL Neutrophils (%) (Auto) 70.1 % Lymphocytes (%) (Auto) 17.1 % Monocytes (%) (Auto) 7.8 % Eosinophils (%) (Auto) 3.6 % Basophils (%) (Auto) 1.4 % Neutrophils # (Auto) 7.5 TH/MM3 Lymphocytes # (Auto) 1.8 TH/MM3 Monocytes # (Auto) 0.8 TH/MM3 Eosinophils # (Auto) 0.4 TH/MM3 Basophils # (Auto) 0.2 TH/MM3 CBC Comment DIFF FINAL Differential Comment Prothrombin Time 10.6 SEC Prothromb Time International Ratio 1.0 RATIO Activated Partial Thromboplast Time 25.2 SEC Blood Urea Nitrogen 20 MG/DL Creatinine 0.96 MG/DL Random Glucose 125 MG/DL Total Protein 7.2 GM/DL Albumin 3.8 GM/DL Calcium Level 8.7 MG/DL Alkaline Phosphatase 68 U/L Aspartate Amino Transf (AST/SGOT) 32 U/L Alanine Aminotransferase (ALT/SGPT) 27 U/L Total Bilirubin 0.8 MG/DL Sodium Level 140 MEQ/L Potassium Level 4.2 MEQ/L Chloride Level 107 MEQ/L Carbon Dioxide Level 24.4 MEQ/L Anion Gap 9 MEQ/L Estimat Glomerular Filtration Rate 77 ML/MIN Lipase 153 U/L Lactic Acid Level 2.5 mmol/L Urine Color YELLOW Urine Turbidity CLEAR Urine pH 5.5 Urine Specific [place] 1.010 Urine Protein NEG mg/dL Urine Glucose (UA) NEG mg/dL Urine Ketones NEG mg/dL Urine Occult Blood NEG Urine Nitrite NEG Urine Bilirubin NEG Urine Urobilinogen 0.2 mg/dL Urine Leukocyte Esterase NEG Urine WBC 0-2 /hpf Microscopic Urinalysis Comment CULT NOT INDICATED MDM Medical Decision Making Medical Screen Exam Complete: Yes Emergency Medical Condition: Yes Differential Diagnosis Aortic dissection, pancreatitis, cholecystitis, gastritis, abdominal wall spasm , kidney stone. Narrative Course Patient roomed in ER, drove here so toradol given while workup in progress. The spasmodic nature of his pain and location raises possibility of aortic pathology. Patient unresponsive to toradol and dissapointed with the lack of pain control wanted to leave. I convinced him to stay and for stronger pain medication if he can find a ride home. He agrees not to drive home. Dilaudid given with complete pain relief. Labs are reassuring ct scan only significant for cholelithiasis without cholecystitis: Last 24 hours Impressions Aorta CTA 12/21/17 0000 Signed Impressions: CONCLUSION: 1. Marked atherosclerotic disease. No evidence of dissection. No significant a neurysm other than prominence of the right common iliac artery measuring 1.7 cm across. Gallstone. Sigmoid diverticulosis. Patient reassured. Discussed need for follow up with director of land acquisition and general surgeon for consideration of cholecystectomy. Otherwise his pain well under control and a repeat abdominal exam benign he is stable for discharge. Diagnosis Primary Impression: Abdominal pain Additional Impression: Gallstone Referrals: Mark Pizarro MD Patient Instructions: Abdominal Pain in Children (DC), General Instructions Additional Instructions: Follow up with your regular physician. Stay bland on your diet for a few days. Return to the ER any time you have concerns that you have a medical emergency. Disposition: 01 DISCHARGE HOME Condition: Stable Luke Sahu MD Dec 21, 2017 04:37
[2017-12-21] MEDS ORDERED: KETOROLAC TROMETHAMINE 30 MG/ML (IVP) VIAL IVP ONE (04:45)
[2017-12-21] MEDS ORDERED: SODIUM CHLORIDE 0.9% FLUSH 10 ML FLUSH IV FLUSH PRN (04:45)
[2017-12-21 04:57] LABS: AUTOMATED NEUTROPHIL # 7.5 TH/MM3 (1.8-7.7); BASOPHIL # 0.2 TH/MM3 (0-0.2); BASOPHIL % 1.4 % (0.0-2.0); EOSINOPHIL # 0.4 TH/MM3 (0-0.4); EOSINOPHIL % 3.6 % (0.0-4.0); HEMATOCRIT 40.5 % (39.0-51.0); HEMOGLOBIN 14.1 GM/DL (13.0-17.0); LYMPH % 17.1 % (9.0-44.0); LYMPHOCYTE # 1.8 TH/MM3 (1.0-4.8); MEAN CELL VOLUME 93.9 FL (80.0-100.0); MEAN CORPUSCULAR HEMOGLOBIN 32.8 PG (27.0-34.0); MEAN CORPUSCULAR HGB CONC 34.9 % (32.0-36.0); MEAN PLATELET VOLUME 9.4 FL (7.0-11.0); MONO % 7.8 % (0.0-8.0); MONOCYTE # 0.8 TH/MM3 (0-0.9); NEUT % 70.1 % (16.0-70.0); PLATELET COUNT 181 TH/MM3 (150-450); RED BLOOD COUNT 4.31 MIL/MM3 (4.50-5.90); RED CELL DISTRIBUTION WIDTH 12.4 % (11.6-17.2); WHITE BLOOD COUNT 10.7 TH/MM3 (4.0-11.0)
[2017-12-21 05:11] LABS: CHLORIDE 107 MEQ/L (98-107); SODIUM (NA) 140 MEQ/L (136-145)
[2017-12-21 05:15] LABS: ALBUMIN 3.8 GM/DL (3.4-5.0); BICARBONATE 24.4 MEQ/L (21.0-32.0); CALCIUM 8.7 MG/DL (8.5-10.1); GLUCOSE,RANDOM 125 MG/DL (74-106)
[2017-12-21] MEDS ORDERED: ONDANSETRON ODT 4 MG TAB PO ONE (05:15)
[2017-12-21] MEDS ORDERED: HYDROmorphone HCL PF 2 MG/ML VIAL IV PUSH ONE (05:15)
[2017-12-21 05:16] LABS: BLOOD UREA NITROGEN 20 MG/DL (7-18)
[2017-12-21 05:18] LABS: ALT (GPT) 27 U/L (12-78); AST (GOT) 32 U/L (15-37); PROTHROMBIN TIME - PATIENT 10.6 SEC (9.8-11.6)
[2017-12-21 05:19] LABS: CREATININE 0.96 MG/DL (0.60-1.30); GLOMERULAR FILTRATION RATE 77 ML/MIN (>89)
[2017-12-21 05:20] LABS: TOTAL BILIRUBIN ADULT 0.8 MG/DL (0.2-1.0); TOTAL PROTEIN 7.2 GM/DL (6.4-8.2)
[2017-12-21 05:23] LABS: ALKALINE PHOSPHATASE 68 U/L (45-117)
[2017-12-21] MEDS ORDERED: IOHEXOL 350 MG/ML 10 ML VIAL (for RAD DIAG) IVCONTRAST ONE (06:09)
[2017-12-21 06:22] VITALS: BP 154/84; PULSE 70; RESP 16; O2SAT 97
--- NOTE | 2017-12-21 06:24 | RADRPT ---
EXAM DATE: 12/21/2017 6:11 AM EDT AGE/SEX: 72 years / Male INDICATIONS: Epigastric pain radiating to back x 3 days. Evaluate for aortic dissection. CLINICAL DATA: This is the patient's initial encounter. Patient reports that signs and symptoms have been present for 3 days and indicates a pain score of 10/10. MEDICAL/SURGICAL HISTORY: Chronic obstructive pulmonary disease. Cerebrovascular disease. Hyperch olesterolemia. Hep C. None. RADIATION DOSE: 17.51 CTDI (mGy) COMPARISON: No prior exams available for comparison. TECHNIQUE: Volumetric scanning was performed using a multi-row detector CT scanner during bolus infu chadd of 100 ml Omnipaque 350 (iohexol) nonionic water-soluble contrast as a single exam dose. The d haley was post processed with a variety of visualization algorithms including full volume maximum inten sity projection, multi-planar sliding thin slab reformation, curved planar reformation, and surface r endering techniques. Using automated exposure control and adjustment of the mA and/or kV according t o patient size, radiation dose was kept as low as reasonably achievable to obtain optimal diagnostic quality images. FINDINGS: Lungs: There is no consolidation or pneumothorax. No concerning pulmonary nodule is visualized. No pleural fluid is present. Mediastinum: No abnormally enlarged lymph nodes by CT criteria. No axillary or hilar abnormalities a re identified. Abdomen: The liver and spleen are free of focal defects except for small hemangioma in the right lob e of liver. Mild heterogeneity suggesting fatty replacement. The gallbladder and pancreas demonstrate no abnormality other than a large gallstone. The adrenal glands are normal. The kidneys demonstrate no evidence of solid renal mass or hydronephrosis. No free fluid or abdominal masses are identified. No para-aortic adenopathy is seen. Sigmoid diverticulosis Pelvis: No evidence of free fluid or pelvic mass. No abnormally enlarged inguinal or retroperitoneal lymph nodes are present. The bladder is unremarkable. Thoracic Aorta: The thoracic aortic root is normal with normal branching of the great vessels. Ther e is no evidence of aneurysm or dissection. Abdominal Aorta: There is atherosclerotic disease with mural calcifications and thrombus and no evid ence of dissection The aorta is normal in caliber without aneurysm or dissection. The renal arteries are patent bilaterally. The proximal celiac and superior mesenteric arteries are patent and normal in diameter. Pelvic Vessels: The internal iliac and external iliac vessels are patent without aneurysm or stenosi s. CONCLUSION: 1. Marked atherosclerotic disease. No evidence of dissection. No significant aneurysm other than pro minence of the right common iliac artery measuring 1.7 cm across. Gallstone. Sigmoid diverticulosis. Electronically signed by: Kaleb Gilbert MD 12/21/2017 6:22 AM EDT
[2017-12-21 06:48] LABS: BILIRUBIN, URINE NEG (NEG); BLOOD, URINE NEG (NEG); GLUCOSE,URINE NEG (NEG); KETONE, URINE NEG (NEG); NITRITE,URINE NEG (NEG); PH, URINE 5.5 (5.0-8.5); URINE COLOR YELLOW (YELLW/STRAW); URINE LEUKOCYTE ESTERASE NEG (NEG)
[2017-12-21 06:55] LABS: WBC, URINE 0-2 /hpf (0-5)
[2017-12-21 07:14] VITALS: BP 150/70
[2017-12-22] MEDS ORDERED: CLAR10CA3 PO (14:50)
--- NOTE | 2017-12-22 16:51 | EKG ---
Date Performed: 12/21/2017 Time Performed: 04:46:12 PTAGE: 72 years EKG: NO FURTHER INTERPRETATION POSSIBLE ATYPICAL ECG PREVIOUS TRACING : 09/19/2016 07.45 Since the previous tracing, no significant change noted DOCTOR: Ashley Zapata Interpretating Date/Time 12/22/2017 17:11:24
== END 2017-12-21 07:17 | disposition home or self-care (01) ==
LOC: PHED 04:11
DX: R10.13 Epigastric pain (principal); K80.20 Calculus of gallbladder without cholecystitis without obstruction; R11.0 Nausea; E78.00 Pure hypercholesterolemia, unspecified; J44.9 Chronic obstructive pulmonary disease, unspecified; F32.9 Major depressive disorder, single episode, unspecified; M19.90 Unspecified osteoarthritis, unspecified site; F41.9 Anxiety disorder, unspecified; Z86.19 Personal history of other infectious and parasitic diseases; Z87.891 Personal history of nicotine dependence; Z88.0 Allergy status to penicillin; Z88.5 Allergy status to narcotic agent; Z86.73 Personal history of transient ischemic attack (TIA), and cerebral infarction without residual deficits; Z79.899 Other long term (current) drug therapy
CPT/HCPCS: 71275; 74174; 80053; 81001; 83605; 83690; 85025; 85610; 85730; 93005; 96374; 96375; 99285; J1170; J1885; Q9967

== ENCOUNTER 2017-12-22 12:17 | Inpatient (IN) | payer OTHER, MEDICARE ==
[~2017-12-22] VITALS: Ht 170.2 cm; Wt 84.4 kg
[~2017-12-22 12:17] MED LIST changes: -ASPI1TAB69 PO; +ASPI81CH6 CHEW; -PRED20 PO
[2017-12-22 12:22] VITALS: BP 188/92; PULSE 73; RESP 18; TEMP 98; O2SAT 96
[2017-12-22 14:45] LABS: AUTOMATED NEUTROPHIL # 13.4 TH/MM3 (1.8-7.7); BASOPHIL # 0.5 TH/MM3 (0-0.2); EOSINOPHIL % 0.2 % (0.0-4.0); HEMOGLOBIN 14.7 GM/DL (13.0-17.0); LYMPH % 7.1 % (9.0-44.0); LYMPHOCYTE # 1.1 TH/MM3 (1.0-4.8); MEAN CELL VOLUME 95.4 FL (80.0-100.0); MEAN CORPUSCULAR HEMOGLOBIN 32.6 PG (27.0-34.0); MEAN CORPUSCULAR HGB CONC 34.2 % (32.0-36.0); MEAN PLATELET VOLUME 8.9 FL (7.0-11.0); MONO % 5.9 % (0.0-8.0); MONOCYTE # 0.9 TH/MM3 (0-0.9); NEUT % 83.8 % (16.0-70.0); PLATELET COUNT 187 TH/MM3 (150-450); RED BLOOD COUNT 4.51 MIL/MM3 (4.50-5.90); RED CELL DISTRIBUTION WIDTH 12.4 % (11.6-17.2); WHITE BLOOD COUNT 15.9 TH/MM3 (4.0-11.0)
[2017-12-22] MEDS ORDERED: SODIUM CHLOR 0.9% 1000 ML INJ 1,000 ML IV ONE (14:45)
[2017-12-22] MEDS ORDERED: CLAR10CA3 PO (14:50)
[2017-12-22 14:55] LABS: BILIRUBIN, URINE MOD (NEG); BLOOD, URINE NEG (NEG); GLUCOSE,URINE 100 mg/dL (NEG); KETONE, URINE TRACE mg/dL (NEG); NITRITE,URINE NEG (NEG); PH, URINE 6.5 (5.0-8.5); URINE COLOR OTHER (YELLW/STRAW); URINE LEUKOCYTE ESTERASE NEG (NEG)
--- NOTE | 2017-12-22 14:55 | PD ---
HPI Chief Complaint: Abdominal Pain Time Seen by Provider: 14:25 Travel History International Travel<30 days: No Contact w/Intl Traveler<30days: No Traveled to known affect area: No History of Present Illness HPI 73-year-old male presented ER for evaluation of right upper quadrant pain has been going on for last 5 days. Patient was here yesterday and had blood work done as well as CTA aorta that was negative for dissection although showed 1.7 mm gallstone. Patient was sent home to follow-up with his surgery but he returned today to the ER because of pain being "unbearable ". patient has no fevers chills or night sweats, no nausea or vomiting or diarrhea. He rates the pain 7 out of 10, comes and goes, nothing makes it better or worse. PFSH Past Medical History Arthritis: Yes Asthma: No Autoimmune Disease: No Blood Disorders: No Anxiety: Yes Depression: Yes Cancer: No Cardiovascular Problems: No High Cholesterol: Yes Chemotherapy: No COPD: Yes Cerebrovascular Accident: Yes (tia) Diminished Hearing: No Endocrine: No Gastrointestinal Disorders: Yes GERD: No Genitourinary: No Hepatitis: Yes (hx of HEP C ) Hiatal Hernia: No Musculoskeletal: Yes Neurologic: No Psychiatric: No Reproductive: No Respiratory: Yes (Asthma) Immunizations Current: Yes Pneumonia: Yes Radiation Therapy: No Sleep Apnea: No Ulcer: No Tetanus Vaccination: Unknown ?: Not Past Surgical History Abdominal Surgery: No Cardiac Surgery: No Ear Surgery: No Endocrine Surgery: No Eye Surgery: No Genitourinary Surgery: No Gynecologic Surgery: No Neurologic Surgery: No Oral Surgery: Yes (nose reconstruction) Thoracic Surgery: No Tonsillectomy: Yes Other Surgery: Yes (ESOPHAGEAL DILITATION X 2) Social History Alcohol Use: Yes ("MAYBE 2 BEERS A MONTH") Tobacco Use: No (QUIT 1995 smoked 2 ppd cigs) Substance Use: No Allergies-Medications (Allergen,Severity, Reaction): Coded Allergies: morphine (Verified Allergy, Severe, 12/22/17) piperacillin (Unverified Allergy, Severe, HIVES, 12/22/17) tazobactam (Unverified Allergy, Severe, HIVES, 12/22/17) Reported Meds & Prescriptions Reported Meds & Active Scripts Active Ventolin Hfa 18 GM Inh (Albuterol Sulfate) 90 Mcg/Act Aer 2 Puff INH Q4H PRN Reported Claritin (Loratadine) 10 Mg Cap 10 Mg PO DAILY Aspirin Low Dose (Aspirin) 81 Mg Chew 81 Mg CHEW DAILY Trazodone (Trazodone HCl) 50 Mg Tab 100 Mg PO HS Oxycodone (Oxycodone HCl) 10 Mg Tab 10 Mg PO BID PRN Multi-Vitamin Daily (Multiple Vitamin) 1 Tab Tab 1 Tab PO DAILY [Prostate Medicine] 1 Tab PO HS Review of Systems Except as stated in HPI: all other systems reviewed are Neg Physical Exam Narrative GENERAL: Alert oriented 3 no acute distress. SKIN: Focused skin assessment warm/dry. HEAD: Atraumatic. Normocephalic. EYES: Pupils equal and round. No scleral icterus. No injection or drainage. ENT: No nasal bleeding or discharge. Mucous membranes pink and moist. NECK: Trachea midline. No JVD. CARDIOVASCULAR: Regular rate and rhythm. No murmur appreciated. RESPIRATORY: No accessory muscle use. Clear to auscultation. Breath sounds equal bilaterally. GASTROINTESTINAL: Mild right upper quadrant tenderness without rebound, abdomen soft, non-tender, nondistended. Hepatic and splenic margins not palpable. MUSCULOSKELETAL: No obvious deformities. No clubbing. No cyanosis. No edema. NEUROLOGICAL: Awake and alert. No obvious cranial nerve deficits. Motor grossly within normal limits. Normal speech. PSYCHIATRIC: Appropriate mood and affect; insight and judgment normal. Data Data Last Documented VS Vital Signs Date Time Temp Pulse Resp B/P (MAP) Pulse Ox O2 Delivery O2 Flow Rate FiO2 12/22/17 17:33 82 16 135/85 (102) 97 Room Air 12/22/17 12:22 98.0 Orders Orders Urinalysis - C+S If Indicated (12/22/17 12:51) Complete Blood Count With Diff (12/22/17 14:33) Comprehensive Metabolic Panel (12/22/17 14:33) Lipase (12/22/17 14:33) Sodium Chlor 0.9% 1000 Ml Inj (Ns 1000 M (12/22/17 14:45) Ketorolac Inj (Toradol Inj) (12/22/17 15:00) Lactic Acid (12/22/17 14:50) Direct Bilirubin (12/22/17 14:40) Us Abdomen Gallbladder (12/22/17 ) Ciprofloxacin 400 Mg Premix (Cipro 400 M (12/22/17 15:15) Metronidazole 500 Mg Inj (Flagyl 500 Mg (12/22/17 15:15) Hydromorphone Pf Inj (Dilaudid Pf Inj) (12/22/17 15:30) Admit Order (Ed Use Only) (12/22/17 17:32) Labs Laboratory Tests Test 12/22/17 14:25 12/22/17 14:40 12/22/17 14:47 Urine Color OTHER Urine Turbidity CLEAR Urine pH 6.5 Urine Specific [place] 1.020 Urine Protein 30 mg/dL Urine Glucose (UA) 100 mg/dL Urine Ketones TRACE mg/dL Urine Occult Blood NEG Urine Nitrite NEG Urine Bilirubin MOD Urine Urobilinogen 4.0 MG/DL Urine Leukocyte Esterase NEG Urine RBC 0-3 /hpf Microscopic Urinalysis Comment CULT NOT INDICATED White Blood Count 15.9 TH/MM3 Red Blood Count 4.51 MIL/MM3 Hemoglobin 14.7 GM/DL Hematocrit 43.0 % Mean Corpuscular Volume 95.4 FL Mean Corpuscular Hemoglobin 32.6 PG Mean Corpuscular Hemoglobin Concent 34.2 % Red Cell Distribution Width 12.4 % Platelet Count 187 TH/MM3 Mean Platelet Volume 8.9 FL Neutrophils (%) (Auto) 83.8 % Lymphocytes (%) (Auto) 7.1 % Monocytes (%) (Auto) 5.9 % Eosinophils (%) (Auto) 0.2 % Basophils (%) (Auto) 3.0 % Neutrophils # (Auto) 13.4 TH/MM3 Lymphocytes # (Auto) 1.1 TH/MM3 Monocytes # (Auto) 0.9 TH/MM3 Eosinophils # (Auto) 0.0 TH/MM3 Basophils # (Auto) 0.5 TH/MM3 CBC Comment AUTO DIFF Differential Comment AUTO DIFF CONFIRMED Blood Urea Nitrogen 18 MG/DL Creatinine 1.10 MG/DL Random Glucose 129 MG/DL Total Protein 8.2 GM/DL Albumin 4.1 GM/DL Calcium Level 9.0 MG/DL Alkaline Phosphatase 95 U/L Aspartate Amino Transf (AST/SGOT) 66 U/L Alanine Aminotransferase (ALT/SGPT) 50 U/L Total Bilirubin 3.0 MG/DL Direct Bilirubin 1.7 MG/DL Sodium Level 138 MEQ/L Potassium Level 3.7 MEQ/L Chloride Level 103 MEQ/L Carbon Dioxide Level 28.6 MEQ/L Anion Gap 6 MEQ/L Estimat Glomerular Filtration Rate 66 ML/MIN Lipase 157 U/L Lactic Acid Level 1.6 mmol/L MDM Medical Decision Making Medical Screen Exam Complete: Yes Emergency Medical Condition: Yes Differential Diagnosis Acute cholecystitis, cholangitis, choledocholithiasis, pancreatitis. Narrative Course Pending labs and ultrasound. Will sign out to Dr. Matute at 7:00 . Diagnosis Primary Impression: Choledocholithiasis Admitting Information Admitting Physician Requests: Admit Condition: Stable Tad Bush MD Dec 22, 2017 14:55
[2017-12-22 14:58] LABS: CHLORIDE 103 MEQ/L (98-107); SODIUM (NA) 138 MEQ/L (136-145)
[2017-12-22] MEDS ORDERED: KETOROLAC TROMETHAMINE 30 MG/ML (IVP) VIAL IV PUSH ONE (15:00)
[2017-12-22 15:02] LABS: ALBUMIN 4.1 GM/DL (3.4-5.0); BICARBONATE 28.6 MEQ/L (21.0-32.0); BLOOD UREA NITROGEN 18 MG/DL (7-18); GLUCOSE,RANDOM 129 MG/DL (74-106)
[2017-12-22 15:03] LABS: RBC, URINE 0-3 /hpf (0-3)
[2017-12-22 15:04] LABS: DIRECT BILIRUBIN ADULT 1.7 MG/DL (0.0-0.2)
[2017-12-22 15:05] LABS: ALT (GPT) 50 U/L (12-78)
[2017-12-22] MEDS ORDERED: metroNIDAZOLE 500 MG INJ 100 ML IV ONE (15:15)
[2017-12-22] MEDS ORDERED: CIPROFLOXACIN 400 MG PREMIX 200 ML IV ONE (15:15)
[2017-12-22] MEDS ORDERED: HYDROmorphone HCL PF 2 MG/ML VIAL IV PUSH ONE (15:30)
[2017-12-22 15:38] LABS: ALKALINE PHOSPHATASE 95 U/L (45-117); AST (GOT) 66 U/L (15-37); GLOMERULAR FILTRATION RATE 66 ML/MIN (>89); TOTAL PROTEIN 8.2 GM/DL (6.4-8.2)
--- NOTE | 2017-12-22 16:20 | RADRPT ---
EXAM DATE: 12/22/2017 4:11 PM EDT AGE/SEX: 72 years / Male INDICATIONS: Right upper quadrant abdominal pain. CLINICAL DATA: This is the patient's initial encounter. Patient reports that signs and/or symptoms h ave been present for 4 - 6 days and indicates a pain score of 7/10. MEDICAL/SURGICAL HISTORY: Transient ischemic attack. Hypercholesterolemia. Chronic obstructive pu lmonary disease. Pneumonia. Diabetes. Liver disease. Hepatitis C. Prosthesis. Nose reconstruction. G allstones. Tonsillectomy. Esophageal dilatation. Right knee surgery/pins. Left lower leg surgery/vanessa . COMPARISON: [facility], US ABDOMEN - GALLBLADDER, 09/19/2016. [facility], CT ABDOMEN & PELVIS W CONTRAST, 09/19. . MEASUREMENTS (cm x cm x cm): Liver:__ 17.7 cm length Common Bile Duct:__ 6mm FINDINGS: Liver: Normal echotexture without focal lesion or ductal dilatation. Portal Vein: Hepatopedal flow seen in portal vein. Common Duct: No intraluminal mass or stone visualized. Gallbladder: There are gallstones in the gallbladder. There is a stone measuring 2.2 cm in the gallb ladder. There is some sludge in the gallbladder. Gallbladder wall is measured at 3 mm. No fluid aroun d the gallbladder. Pancreas: Not well visualized. Right Kidney: Normal echotexture and cortical thickness. No mass or hydronephrosis. Other: None. CONCLUSION: 1. Gallstones in the gallbladder. No biliary tract obstruction. 2. Pancreas was not visualized. Electronically signed by: Charly Thomas MD 12/22/2017 4:18 PM EDT
[2017-12-22 17:33] VITALS: BP 135/85; PULSE 82; RESP 16; O2SAT 97
[2017-12-22] MEDS ORDERED: ACETAMINOPHEN 325 MG TAB PO PRN (17:45)
[2017-12-22] MEDS ORDERED: MAGNESIUM HYDROXIDE SUSP 30 ML CUP PO PRN (17:45)
[2017-12-22] MEDS ORDERED: LACTULOSE SYRUP 20 GM/30 ML CUP PO PRN (17:45)
[2017-12-22] MEDS ORDERED: NALOXONE HCL 0.4 MG/ML AMP IV PUSH PRN (17:45)
[2017-12-22] MEDS ORDERED: BISACODYL 10 MG SUPP RECTAL PRN (17:45)
[2017-12-22] MEDS ORDERED: SODIUM CHLORIDE 0.9% FLUSH 10 ML FLUSH IV FLUSH PRN (17:45)
[2017-12-22] MEDS ORDERED: SENNOSIDES 8.6 MG TAB PO PRN (17:45)
[2017-12-22] MEDS ORDERED: cefTRIAXone INJ 1,000 MG in SODIUM CHLORIDE 0.9% INJ 100 ML IV SCH (18:00)
--- NOTE | 2017-12-22 18:20 | HHI.HP ---
[facility] Admission Diagnosis choledocholithiasis Diagnoses: Chief Complaint: RUQ abdominal pain Travel History International Travel<30 Days: No Contact w/Intl Traveler <30 Da: No Traveled to Known Affected Are: No History of Present Illness Mr. Latif is a pleasant 72-year-old male with a history of hyperlipidemia, TIA, hepatitis C who presents to the emergency department due to right upper quadrant abdominal pain that started 5 days prior to this admission. Patient was evaluated in the emergency department on 12/21/2017 for similar problem. He underwent a CTA study which was negative for any dissection but showed 1.7 mm gallstone. He was sent home to follow-up with his surgeon in the outpatient setting. However patient came back due to worsening pain. He denies any chest pain, shortness of breath, fever or chills. However, he had some low grade fever at home. No changes in bowel or bladder habits. Review of Systems Except as stated in HPI: all other systems reviewed are Neg Past Family Social History Past Medical History TIA, arthritis, depression, anxiety, hyperlipidemia, hepatitis C, asthma. Past Surgical History Nose reconstruction, esophageal dilatation 2. Reported Medications Ventolin Hfa 18 GM Inh (Albuterol Sulfate) 90 Mcg/Act Aer 2 Puff INH Q4H PRN Reported Claritin (Loratadine) 10 Mg Cap 10 Mg PO DAILY Aspirin Low Dose (Aspirin) 81 Mg Chew 81 Mg CHEW DAILY Trazodone (Trazodone HCl) 50 Mg Tab 100 Mg PO HS Oxycodone (Oxycodone HCl) 10 Mg Tab 10 Mg PO BID PRN Multi-Vitamin Daily (Multiple Vitamin) 1 Tab Tab 1 Tab PO DAILY [Prostate Medicine] 1 Tab PO HS Allergies: Coded Allergies: morphine (Verified Allergy, Severe, 12/22/17) piperacillin (Unverified Allergy, Severe, HIVES, 12/22/17) tazobactam (Unverified Allergy, Severe, HIVES, 12/22/17) Family History Mother had Alzheimer's. Social History Drinks 2 beers a month, quit smoking in 1995. Physical Exam Vital Signs Vital Signs Date Time Temp Pulse Resp B/P (MAP) Pulse Ox O2 Delivery O2 Flow Rate FiO2 12/22/17 17:53 12/22/17 17:33 82 16 135/85 (102) 97 Room Air 12/22/17 12:22 98.0 73 18 188/92 (124) 96 Physical Exam GENERAL: This is a well-nourished, well-developed patient, in no apparent distress. SKIN: No rashes, ecchymoses or lesions. Warm and dry. HEAD: Atraumatic. Normocephalic. No temporal or scalp tenderness. EYES: Pupils equal round and reactive. No injection or drainage. ENT: Nose without bleeding, purulent drainage or septal hematoma. Airway patent. NECK: Trachea midline. No lymphadenopathy. Supple, nontender, no meningeal signs. CARDIOVASCULAR: Regular rate and rhythm without murmurs, gallops, or rubs. No JVD. RESPIRATORY: Clear to auscultation. Breath sounds equal bilaterally. No wheezes , rales, or rhonchi. GASTROINTESTINAL: Abdomen soft, tender to palpation over RUQ, nondistended. No guarding. MUSCULOSKELETAL: Extremities without clubbing, cyanosis, or edema. NEUROLOGICAL: Awake and alert. Cranial nerves II through XII intact. No focal neurological deficits. Normal speech. Laboratory Laboratory Tests Test 12/22/17 14:25 12/22/17 14:40 12/22/17 14:47 Urine Color OTHER Urine Turbidity CLEAR Urine pH 6.5 Urine Specific [place] 1.020 Urine Protein 30 Urine Glucose (UA) 100 Urine Ketones TRACE Urine Occult Blood NEG Urine Nitrite NEG Urine Bilirubin MOD Urine Urobilinogen 4.0 Urine Leukocyte Esterase NEG Urine RBC 0-3 Microscopic Urinalysis Comment CULT NOT INDICATED White Blood Count 15.9 Red Blood Count 4.51 Hemoglobin 14.7 Hematocrit 43.0 Mean Corpuscular Volume 95.4 Mean Corpuscular Hemoglobin 32.6 Mean Corpuscular Hemoglobin Concent 34.2 Red Cell Distribution Width 12.4 Platelet Count 187 Mean Platelet Volume 8.9 Neutrophils (%) (Auto) 83.8 Lymphocytes (%) (Auto) 7.1 Monocytes (%) (Auto) 5.9 Eosinophils (%) (Auto) 0.2 Basophils (%) (Auto) 3.0 Neutrophils # (Auto) 13.4 Lymphocytes # (Auto) 1.1 Monocytes # (Auto) 0.9 Eosinophils # (Auto) 0.0 Basophils # (Auto) 0.5 CBC Comment AUTO DIFF Differential Comment AUTO DIFF CONFIRMED Blood Urea Nitrogen 18 Creatinine 1.10 Random Glucose 129 Total Protein 8.2 Albumin 4.1 Calcium Level 9.0 Alkaline Phosphatase 95 Aspartate Amino Transf (AST/SGOT) 66 Alanine Aminotransferase (ALT/SGPT) 50 Total Bilirubin 3.0 Direct Bilirubin 1.7 Sodium Level 138 Potassium Level 3.7 Chloride Level 103 Carbon Dioxide Level 28.6 Anion Gap 6 Estimat Glomerular Filtration Rate 66 Lipase 157 Lactic Acid Level 1.6 Result Diagram: 12/22/17 1440 12/22/17 1440 Imaging Last Impressions Gall Bladder Ultrasound 12/22/17 0000 Signed Impressions: CONCLUSION: 1. Gallstones in the gallbladder. No biliary tract obstruction. 2. Pancreas was not visualized. Caprini VTE Risk Assessment Caprini VTE Risk Assessment: No/Low Risk (score <= 1) Caprini Risk Assessment Model Point Value = 1 Point Value = 2 Point Value = 3 Point Value = 5 Age 41-60 Minor surgery BMI > 25 kg/m2 Swollen legs Varicose veins or History of unexplained or recurrent spontaneous Oral contraceptives or hormone replacement Sepsis (< 1 month) Serious lung disease, including pneumonia (< 1 month) Abnormal pulmonary function Acute myocardial infarction Congestive heart failure (< 1 month) History of inflammatory bowel disease Medical patient at bed rest Age 61-74 Arthroscopic surgery Major open surgery (> 45 min) Laparoscopic surgery (> 45 min) Malignancy Confined to bed (> 72 hours) Immobilizing plaster cast Central venous access Age >= 75 History of VTE Family history of VTE Factor V Leiden Prothrombin [id number] Lupus anticoagulant Anticardiolipin antibodies Elevated serum homocysteine Heparin-induced thrombocytopenia Other congenital or acquired thrombophilia Stroke (< 1 month) Elective arthroplasty Hip, pelvis, or leg fracture Acute spinal cord injury (< 1 month) Prophylaxis Regimen Total Risk Factor Score Risk Level Prophylaxis Regimen 0-1 Low Early ambulation 2 Moderate Order ONE of the following: *Sequential Compression Device (SCD) *Heparin 5000 units SQ BID 3-4 Higher Order ONE of the following medications: *Heparin 5000 units SQ TID *Enoxaparin/Lovenox 40 mg SQ daily (WT < 150 kg, CrCl > 30 mL/min) *Enoxaparin/Lovenox 30 mg SQ daily (WT < 150 kg, CrCl > 10-29 mL/min) *Enoxaparin/Lovenox 30 mg SQ BID (WT < 150 kg, CrCl > 30 mL/min) AND/OR *Sequential Compression Device (SCD) 5 or more Highest Order ONE of the following medications: *Heparin 5000 units SQ TID (Preferred with Epidurals) *Enoxaparin/Lovenox 40 mg SQ daily (WT < 150 kg, CrCl > 30 mL/min) *Enoxaparin/Lovenox 30 mg SQ daily (WT < 150 kg, CrCl > 10-29 mL/min) *Enoxaparin/Lovenox 30 mg SQ BID (WT < 150 kg, CrCl > 30 mL/min) AND *Sequential Compression Device (SCD) Assessment and Plan Problem List: (1) Acute cholecystitis ICD Code: K81.0 - Acute cholecystitis Status: Acute Assessment and Plan Mr. Latif is a 72-year-old male who presents to the emergency department due to right upper quadrant abdominal pain that has been going on for 5 days. Patient was evaluated in the emergency department on 12/21/2017. However due to worsening abdominal pain he decided to come back to the emergency department. Acute cholecystitis -Gallbladder ultrasound shows gallstone. No biliary tract obstruction -We will consult general surgery Dr. Grande who has seen this patient before. -Pt denies any allergies to PCN. Will start patient on Ceftriaxone 2g Qday -Pain management with Percocet and Dilaudid PRN. COPD -no acute exacerbation. Continue DuoNeb as needed. Full code. Ambulation, SCDs. Physician Certification 2 Midnight Certification Type: Admission for Inpatient Services Order for Inpatient Services The services are ordered in accordance with Medicare regulations or non- Medicare payer requirements, as applicable. In the case of services not specified as inpatient-only, they are appropriately provided as inpatient services in accordance with the 2-midnight benchmark. Estimated LOS (days): 2 days is the estimated time the patient will need to remain in the hospital, assuming treatment plan goals are met and no additional complications. Post-Hospital Plan: Home Huan Scanlon DO Dec 22, 2017 6:20 pm
[2017-12-22] MEDS ORDERED: RESP: ALBUTEROL 2.5 MG/IPRATROPIUM 0.5 MG NEB (PRN) NEB (19:00)
[2017-12-22] MEDS: HYDROmorphone HCL PF 2 MG/ML VIAL IV PUSH PRN (19:46)
[2017-12-22 20:00] VITALS: BP 155/92; PULSE 74; RESP 20; TEMP 97; O2SAT 95
[2017-12-22] MEDS: cefTRIAXone INJ 2,000 MG in SODIUM CHLORIDE 0.9% INJ 100 ML IV SCH (20:02)
[2017-12-22] MEDS: SODIUM CHLORIDE 0.9% FLUSH 10 ML FLUSH IV FLUSH SCH (20:02)
[2017-12-22] MEDS: oxyCODONE/ACETAMINOPHEN 7.5 MG/325 MG TAB PO PRN (20:40)
[2017-12-22 21:15] VITALS: O2SAT 96
[2017-12-23] VITALS (8 sets, daily range): BP systolic 154–170; BP diastolic 83–99; PULSE 71–88; RESP 18–20; TEMP 96.3–99.3; O2SAT 92–96
[2017-12-23] MEDS: HYDROmorphone HCL PF 2 MG/ML VIAL IV PUSH PRN ×5 (00:08→23:43)
--- NOTE | 2017-12-23 01:04 | PD ---
Data Data Last Documented VS Vital Signs Date Time Temp Pulse Resp B/P (MAP) Pulse Ox O2 Delivery O2 Flow Rate FiO2 12/22/17 17:33 82 16 135/85 (102) 97 Room Air 12/22/17 12:22 98.0 Orders Orders Urinalysis - C+S If Indicated (12/22/17 12:51) Complete Blood Count With Diff (12/22/17 14:33) Comprehensive Metabolic Panel (12/22/17 14:33) Lipase (12/22/17 14:33) Sodium Chlor 0.9% 1000 Ml Inj (Ns 1000 M (12/22/17 14:45) Ketorolac Inj (Toradol Inj) (12/22/17 15:00) Lactic Acid (12/22/17 14:50) Direct Bilirubin (12/22/17 14:40) Us Abdomen Gallbladder (12/22/17 ) Ciprofloxacin 400 Mg Premix (Cipro 400 M (12/22/17 15:15) Metronidazole 500 Mg Inj (Flagyl 500 Mg (12/22/17 15:15) Hydromorphone Pf Inj (Dilaudid Pf Inj) (12/22/17 15:30) Admit Order (Ed Use Only) (12/22/17 17:32) Labs Laboratory Tests Test 12/22/17 14:25 12/22/17 14:40 12/22/17 14:47 Urine Color OTHER Urine Turbidity CLEAR Urine pH 6.5 Urine Specific [place] 1.020 Urine Protein 30 mg/dL Urine Glucose (UA) 100 mg/dL Urine Ketones TRACE mg/dL Urine Occult Blood NEG Urine Nitrite NEG Urine Bilirubin MOD Urine Urobilinogen 4.0 MG/DL Urine Leukocyte Esterase NEG Urine RBC 0-3 /hpf Microscopic Urinalysis Comment CULT NOT INDICATED White Blood Count 15.9 TH/MM3 Red Blood Count 4.51 MIL/MM3 Hemoglobin 14.7 GM/DL Hematocrit 43.0 % Mean Corpuscular Volume 95.4 FL Mean Corpuscular Hemoglobin 32.6 PG Mean Corpuscular Hemoglobin Concent 34.2 % Red Cell Distribution Width 12.4 % Platelet Count 187 TH/MM3 Mean Platelet Volume 8.9 FL Neutrophils (%) (Auto) 83.8 % Lymphocytes (%) (Auto) 7.1 % Monocytes (%) (Auto) 5.9 % Eosinophils (%) (Auto) 0.2 % Basophils (%) (Auto) 3.0 % Neutrophils # (Auto) 13.4 TH/MM3 Lymphocytes # (Auto) 1.1 TH/MM3 Monocytes # (Auto) 0.9 TH/MM3 Eosinophils # (Auto) 0.0 TH/MM3 Basophils # (Auto) 0.5 TH/MM3 CBC Comment AUTO DIFF Differential Comment AUTO DIFF CONFIRMED Blood Urea Nitrogen 18 MG/DL Creatinine 1.10 MG/DL Random Glucose 129 MG/DL Total Protein 8.2 GM/DL Albumin 4.1 GM/DL Calcium Level 9.0 MG/DL Alkaline Phosphatase 95 U/L Aspartate Amino Transf (AST/SGOT) 66 U/L Alanine Aminotransferase (ALT/SGPT) 50 U/L Total Bilirubin 3.0 MG/DL Direct Bilirubin 1.7 MG/DL Sodium Level 138 MEQ/L Potassium Level 3.7 MEQ/L Chloride Level 103 MEQ/L Carbon Dioxide Level 28.6 MEQ/L Anion Gap 6 MEQ/L Estimat Glomerular Filtration Rate 66 ML/MIN Lipase 157 U/L Lactic Acid Level 1.6 mmol/L MDM Supervised Visit with ROMINA: No Narrative Course This is a 72-year-old male who presents to the comfort that has been going on for several days. He was seen here yesterday by Dr. Sahu and had a CT which did demonstrate a gallstone but biliary labs were normal. Today he has a total bilirubin of 3 concerning for choledocholithiasis. Ultrasound demonstrates gallstones but no acute cholecystitis. Given the patient's new leukocytosis he was given a dose of Cipro and Flagyl and he will be admitted for GI consultation. Diagnosis Primary Impression: Choledocholithiasis Admitting Information Admitting Physician Requests: Admit Xochilt Matute MD Dec 23, 2017 01:04
[2017-12-23] MEDS: oxyCODONE/ACETAMINOPHEN 7.5 MG/325 MG TAB PO PRN ×4 (03:53→22:31)
--- NOTE | 2017-12-23 08:07 | HHI.PR ---
Subjective Remarks Follow-up for acute cholecystitis, right upper quadrant abdominal pain. Patient is currently doing well. He complains of some persistent pain on the right upper quadrant. No fever or chills. Objective Vitals Vital Signs Date Time Temp Pulse Resp B/P (MAP) Pulse Ox O2 Delivery O2 Flow Rate FiO2 12/23/17 00:00 97.7 80 20 166/99 (121) 96 12/22/17 21:15 96 21 12/22/17 20:00 97.0 74 20 155/92 (113) 95 12/22/17 17:53 12/22/17 17:33 82 16 135/85 (102) 97 Room Air 12/22/17 12:22 98.0 73 18 188/92 (124) 96 I/O 12/22/17 12/22/17 12/22/17 12/23/17 12/23/17 12/23/17 07:00 15:00 23:00 07:00 15:00 23:00 Intake Total 1300 ml Output Total 650 ml Balance 1300 ml -650 ml Intake IV Total 1300 ml Output Urine Total 650 ml # Bowel Movements 0 Result Diagram: 12/22/17 1440 12/22/17 1440 Imaging Last Impressions Gall Bladder Ultrasound 12/22/17 0000 Signed Impressions: CONCLUSION: 1. Gallstones in the gallbladder. No biliary tract obstruction. 2. Pancreas was not visualized. Objective Remarks GENERAL: Alert, oriented 3, NAD. SKIN: Warm and dry. HEAD: Normocephalic. EYES: No scleral icterus. No injection or drainage. NECK: Supple, trachea midline. No JVD or lymphadenopathy. CARDIOVASCULAR: Regular rate and rhythm without murmurs, gallops, or rubs. RESPIRATORY: Breath sounds equal bilaterally. No accessory muscle use. GASTROINTESTINAL: Abdomen soft, tender to palpation of her right upper quadrant nondistended. MUSCULOSKELETAL: No cyanosis, or edema. BACK: Nontender without obvious deformity. No CVA tenderness. Procedures None A/P Problem List: (1) Acute cholecystitis ICD Code: K81.0 - Acute cholecystitis Status: Acute Assessment and Plan Mr. Latif is a 72-year-old male who presents to the emergency department due to right upper quadrant abdominal pain that has been going on for 5 days. Patient was evaluated in the emergency department on 12/21/2017. However due to worsening abdominal pain he decided to come back to the emergency department. Acute cholecystitis -Gallbladder ultrasound shows gallstone. No biliary tract obstruction -Discussed with Dr. Grande who will see the patient today. -Pt denies any allergies to PCN. Continue ceftriaxone 2g Qday no antibiotics after surgery. -Pain management with Percocet and Dilaudid PRN. Hypertension -systolic blood pressure in the 160s. Likely due to pain. Will monitor. COPD -no acute exacerbation. Continue DuoNeb as needed. Full code. Ambulation, SCDs. Huan Scanlon DO Dec 23, 2017 8:07 am
[2017-12-23] MEDS: SODIUM CHLORIDE 0.9% FLUSH 10 ML FLUSH IV FLUSH SCH ×2 (08:25→22:14)
--- NOTE | 2017-12-23 11:19 | PD.CAR.PN ---
CVT Progress Note Subjective/Hospital Course: Referral received 72-year-old male with biliary colic in September this year was admitted treated and advised on follow-up care Patient was supposed to follow-up with my office but never did so now returns with another bout of right upper quadrant pain. Bilirubin is slightly elevated and will see which way this goes but in general patient will require laparoscopic cholecystectomy at this admission Full consult to follow Lj Grande Objective: Vital Signs Date Time Temp Pulse Resp B/P (MAP) Pulse Ox O2 Delivery O2 Flow Rate FiO2 12/23/17 08:35 95 21 12/23/17 07:50 96.3 79 20 169/83 (111) 95 12/23/17 00:00 97.7 80 20 166/99 (121) 96 12/22/17 21:15 96 21 12/22/17 20:00 97.0 74 20 155/92 (113) 95 12/22/17 17:53 12/22/17 17:33 82 16 135/85 (102) 97 Room Air 12/22/17 12:22 98.0 73 18 188/92 (124) 96 Result Diagram: 12/22/17 1440 12/22/17 1440 Lorraine Sesay MD Dec 23, 2017 11:19
--- NOTE | 2017-12-23 17:35 | MB ---
cc: Lorraine Sesay MD DATE: 12/23/2017 DATE OF CONSULTATION: 12/23/2017 CONSULTING PHYSICIAN: Dr. Sesay, Surgery. REASON FOR CONSULTATION: Acute calculous cholecystitis, cholelithiasis. HISTORY OF PRESENT DISEASE: This is a 72-year-old male with history of hepatitis C and hyperlipidemia, who presents to the emergency room with severe right upper quadrant pain of about 5 days' duration. The patient had some nausea, but no vomiting. He was anorexic. The patient underwent a workup and was found to have cholelithiasis with about 2 cm stone stuck in the neck of the gallbladder, clearly consistent with biliary colic. PAST MEDICAL HISTORY: TIA, depression, hyperlipidemia, hepatitis C, asthma and arthritis. PAST SURGICAL HISTORY: Esophageal dilatation and nose reconstruction. MEDICATIONS: The patient is on multiple medications including aspirin, trazodone, oxycodone and Ventolin. ALLERGIES: MORPHINE. SOCIAL HISTORY: Stopped smoking about 20 years ago and very little. PHYSICAL EXAMINATION: GENERAL: A well-developed, 72-year-old gentleman. HEENT: Normocephalic. No trauma to the head. Pupils equal, reactive. Extraocular muscles intact. NECK: Supple. Bilateral carotid pulses. Faint carotid bruit that was worked up previously. CHEST: Bilateral breath sounds, decreased to both lung dominguez. The patient has moderate degree of chronic obstructive pulmonary disease. HEART: Regular rhythm. ABDOMEN: Soft. Active bowel sounds. No rebound, no guarding, no masses. Slightly tender in the right upper quadrant, but certainly the patient had biliary colic that now passed. Groins are normal. EXTREMITIES: Grossly normal limbs with good proximal and distal pulses. No signs of acute vascular deficit. BACK: Normal. NEUROLOGIC: The patient is intact. IMPRESSION AND PLAN: The patient with chronic calculous cholecystitis, recurrent biliary colic, for laparoscopic cholecystectomy tomorrow. I discussed this with the patient at length. At the last admission, the patient refused to have surgery and was going to followup with my office, but never did. He was asked to come in and did not. Now, he comes back stating that we were probably right and he should have had the surgery, hence so it goes. Thank you much for referral. MD AZAM Springer/YOBANI , 04:20 PM , 04:35 PM
--- NOTE | 2017-12-23 17:55 | RADRPT ---
EXAM DATE: 12/23/2017 5:53 PM EDT AGE/SEX: 72 years / Male INDICATIONS: Evaluate for pneumonia, pneumothorax, or communicable disease. Pre-op cholecystectomy t omorrow. CLINICAL DATA: This is the patient's initial encounter. Patient reports that signs and symptoms have been present for 1 day and indicates a pain score of 0/10. MEDICAL/SURGICAL HISTORY: . Transient ischemic attack. Hypercholesterolemia. Chronic obstructiv e pulmonary disease. Pneumonia. Diabetes. Liver disease. Hepatitis C. Gallstones. . Tonsillectomy. E sophageal dilatation. COMPARISON: [facility], CHEST SINGLE AP, 09/15/2016. . FINDINGS: A single AP view of the chest demonstrates the lungs to be symmetrically aerated without evidence of mass, infiltrate or effusion. The cardiomediastinal contours are unremarkable. Osseous structures a re intact. CONCLUSION: No acute cardiopulmonary processes. Electronically signed by: Getachew Batres MD 12/23/2017 5:54 PM EDT
[2017-12-23] MEDS: cefTRIAXone INJ 2,000 MG in SODIUM CHLORIDE 0.9% INJ 100 ML IV SCH (20:00)
[2017-12-24] VITALS: BP 149/85; PULSE 81; RESP 20; TEMP 98.6; O2SAT 91
[2017-12-24] MEDS: HYDROmorphone HCL PF 2 MG/ML VIAL IV PUSH PRN ×4 (03:44→22:52)
[2017-12-24] MEDS: oxyCODONE/ACETAMINOPHEN 7.5 MG/325 MG TAB PO PRN ×3 (04:57→21:34)
[2017-12-24 06:33] LABS: CHLORIDE 105 MEQ/L (98-107); SODIUM (NA) 140 MEQ/L (136-145)
[2017-12-24 06:49] LABS: ALBUMIN 3.3 GM/DL (3.4-5.0); ALKALINE PHOSPHATASE 90 U/L (45-117); ALT (GPT) 68 U/L (12-78); AST (GOT) 56 U/L (15-37); BICARBONATE 28.1 MEQ/L (21.0-32.0); BLOOD UREA NITROGEN 8 MG/DL (7-18); CALCIUM 8.1 MG/DL (8.5-10.1); CREATININE 0.87 MG/DL (0.60-1.30); GLOMERULAR FILTRATION RATE 86 ML/MIN (>89); GLUCOSE,RANDOM 101 MG/DL (74-106); TOTAL BILIRUBIN ADULT 2.1 MG/DL (0.2-1.0); TOTAL PROTEIN 6.6 GM/DL (6.4-8.2)
--- NOTE | 2017-12-24 07:54 | HHI.PR ---
Subjective Remarks Follow-up for acute cholecystitis. Patient is currently doing well. No chest pain, shortness of breath, fever or chills. Waiting for surgery today. He does complain of persistent right upper quadrant abdominal pain. Objective Vitals Vital Signs Date Time Temp Pulse Resp B/P (MAP) Pulse Ox O2 Delivery O2 Flow Rate FiO2 12/24/17 05:57 19 12/24/17 04:14 19 12/24/17 00:00 98.6 81 20 149/85 (106) 91 12/23/17 20:00 99.3 88 18 170/83 (112) 92 12/23/17 19:55 94 21 12/23/17 19:52 94 21 12/23/17 15:50 97.5 82 20 154/94 (114) 94 12/23/17 11:50 96.3 71 20 157/88 (111) 94 12/23/17 08:35 95 21 I/O 12/23/17 12/23/17 12/23/17 12/24/17 12/24/17 12/24/17 07:00 15:00 23:00 07:00 15:00 23:00 Intake Total 1350 ml Output Total 650 ml 450 ml Balance -650 ml 1350 ml -450 ml Intake Oral 1350 ml Output Urine Total 650 ml 450 ml # Voids 4 # Bowel Movements 0 0 0 Result Diagram: 12/22/17 1440 12/24/17 0550 Imaging Last Impressions Chest X-Ray 12/23/17 0000 Signed Impressions: CONCLUSION: No acute cardiopulmonary processes. Gall Bladder Ultrasound 12/22/17 0000 Signed Impressions: CONCLUSION: 1. Gallstones in the gallbladder. No biliary tract obstruction. 2. Pancreas was not visualized. Objective Remarks GENERAL: Alert, oriented 3, NAD. SKIN: Warm and dry. HEAD: Normocephalic. EYES: No scleral icterus. No injection or drainage. NECK: Supple, trachea midline. No JVD or lymphadenopathy. CARDIOVASCULAR: Regular rate and rhythm without murmurs, gallops, or rubs. RESPIRATORY: Breath sounds equal bilaterally. No accessory muscle use. GASTROINTESTINAL: Abdomen soft, tender to palpation of her right upper quadrant , nondistended. MUSCULOSKELETAL: No cyanosis, or edema. BACK: Nontender without obvious deformity. No CVA tenderness. Procedures None A/P Problem List: (1) Acute cholecystitis ICD Code: K81.0 - Acute cholecystitis Status: Acute Assessment and Plan Mr. Latif is a 72-year-old male who presents to the emergency department due to right upper quadrant abdominal pain that has been going on for 5 days. Patient was evaluated in the emergency department on 12/21/2017. However due to worsening abdominal pain he decided to come back to the emergency department. Acute cholecystitis -Gallbladder ultrasound shows gallstone. No biliary tract obstruction -Pt denies any allergies to PCN. Continue ceftriaxone 2g Qday no antibiotics after surgery. -Pain management with Percocet and Dilaudid PRN. -Probable surgery today. Hypertension -systolic blood pressure in the 130s. COPD -no acute exacerbation. Continue DuoNeb as needed. Full code. Ambulation, SCDs. Huan Scanlon DO Dec 24, 2017 07:54
[2017-12-24 08:00] VITALS: BP 136/74; PULSE 70; RESP 18; TEMP 98; O2SAT 96
[2017-12-24] MEDS: SODIUM CHLORIDE 0.9% FLUSH 10 ML FLUSH IV FLUSH SCH ×2 (09:15→20:13)
[2017-12-24] MEDS ORDERED: BUPIVACAINE/EPINEPHRINE 0.5% PF 30 ML VIAL ONE (12:05)
[2017-12-24] MEDS ORDERED: METOPROLOL TARTRATE 25 MG TAB PO PRN (13:30)
[2017-12-24] MEDS ORDERED: SODIUM CHLORID 0.9% 500 ML IV PRN (13:30)
[2017-12-24] MEDS ORDERED: CHLORHEXIDINE GLUCONATE 2 % 1 PACK (2 CLOTHS) TOPICAL PRN (13:30)
[2017-12-24] MEDS ORDERED: POVIDONE IODINE 5% (ANTISEPSIS KIT) 4 APPLICATIONS EACH NARE PRN (13:30)
[2017-12-24] MEDS ORDERED: LACTATED RINGER'S 1000 ML IV PRN (13:30)
[2017-12-24] MEDS ORDERED: MEPERIDINE HCL 25 MG/ML VIAL ONE (14:02)
[2017-12-24 14:05] VITALS: PULSE 80
--- NOTE | 2017-12-24 14:16 | MP ---
cc: Lorraine Sesay MD DATE OF OPERATION: 12/24/2017 PREOPERATIVE DIAGNOSIS: Chronic cholecystitis with acute exacerbation cholelithiasis. POSTOPERATIVE DIAGNOSIS: Chronic cholecystitis with acute exacerbation cholelithiasis. PROCEDURE: Laparoscopic cholecystectomy. SURGEON: Lorraine Sesay MD ANESTHESIA: General. ESTIMATED BLOOD LOSS: 150 mL. DESCRIPTION OF PROCEDURE: The patient prepped and draped in the usual fashion. Supraumbilical incision made. Under direct vision, Eddie cannula was placed, the abdomen insufflated with CO2 and patient positioned in the reverse Trendelenburg with a left tilt. Subxiphoid and 2 right upper quadrant ports placed under 0-degree camera vision. Gallbladder was visualized. It was covered with omentum, which was fairly tightly stuck to the gallbladder. Very gradually, omentum was peeled off with blunt dissection and Endo scissors. Once this was peeled off, a second grasper was placed on the neck of the gallbladder and this one elevated. Cystic duct and cystic artery were very carefully dissected. There was a large cystic artery present, which bled some; hence, the blood loss. Ligaclips were applied to both and divided. The gallbladder was now taken off the liver bed with the spatula cautery instrument and delivered through umbilical incision using EndoCatch bag. Area irrigated with saline. Meticulous hemostasis obtained and flat ADOLFO placed in subhepatic space. Instruments withdrawn. The incision was closed with 0 Vicryl and 4-0 subcuticular Monocryl. The patient tolerated the procedure well. MD AZAM Springer/YOBANI , 01:48 PM , 02:14 PM
[2017-12-24] MEDS ORDERED: LORazepam 2 MG/ML VIAL ONE (14:48)
[2017-12-24 17:51] LABS: AUTOMATED NEUTROPHIL # 12.9 TH/MM3 (1.8-7.7); BASOPHIL # 0.1 TH/MM3 (0-0.2); BASOPHIL % 0.7 % (0.0-2.0); EOSINOPHIL % 0.1 % (0.0-4.0); HEMATOCRIT 31.7 % (39.0-51.0); HEMOGLOBIN 10.5 GM/DL (13.0-17.0); LYMPH % 2.4 % (9.0-44.0); LYMPHOCYTE # 0.3 TH/MM3 (1.0-4.8); MEAN CELL VOLUME 94.6 FL (80.0-100.0); MEAN CORPUSCULAR HEMOGLOBIN 31.4 PG (27.0-34.0); MEAN CORPUSCULAR HGB CONC 33.2 % (32.0-36.0); MEAN PLATELET VOLUME 8.8 FL (7.0-11.0); MONO % 4.2 % (0.0-8.0); MONOCYTE # 0.6 TH/MM3 (0-0.9); NEUT % 92.6 % (16.0-70.0); PLATELET COUNT 200 TH/MM3 (150-450); RED BLOOD COUNT 3.36 MIL/MM3 (4.50-5.90); RED CELL DISTRIBUTION WIDTH 12.7 % (11.6-17.2); WHITE BLOOD COUNT 13.9 TH/MM3 (4.0-11.0)
[2017-12-24 18:21] VITALS: BP 110/55; PULSE 107; RESP 16; TEMP 98.7; O2SAT 97
[2017-12-24 20:00] VITALS: BP 100/59; PULSE 106; RESP 20; TEMP 99.6; O2SAT 97
[2017-12-24] MEDS: cefTRIAXone INJ 2,000 MG in SODIUM CHLORIDE 0.9% INJ 100 ML IV SCH (20:00)
[2017-12-24 20:55] VITALS: O2SAT 96
[2017-12-24 21:21] LABS: HEMATOCRIT 29.9 % (39.0-51.0)
[2017-12-25] VITALS (19 sets, daily range): BP systolic 84–135; BP diastolic 51–81; PULSE 94–152; RESP 18–44; TEMP 98.2–100; O2SAT 77–96
[2017-12-25] MEDS: oxyCODONE/ACETAMINOPHEN 7.5 MG/325 MG TAB PO PRN ×2 (05:21→11:56)
[2017-12-25 06:01] LABS: BASOPHIL % 0.2 % (0.0-2.0); EOSINOPHIL % 0.2 % (0.0-4.0); HEMATOCRIT 24.6 % (39.0-51.0); HEMOGLOBIN 8.6 GM/DL (13.0-17.0); LYMPH % 5.5 % (9.0-44.0); LYMPHOCYTE # 0.9 TH/MM3 (1.0-4.8); MEAN CELL VOLUME 91.8 FL (80.0-100.0); MEAN CORPUSCULAR HEMOGLOBIN 32.1 PG (27.0-34.0); MEAN PLATELET VOLUME 9.3 FL (7.0-11.0); MONO % 11.4 % (0.0-8.0); MONOCYTE # 1.8 TH/MM3 (0-0.9); NEUT % 82.7 % (16.0-70.0); PLATELET COUNT 190 TH/MM3 (150-450); RED BLOOD COUNT 2.68 MIL/MM3 (4.50-5.90); RED CELL DISTRIBUTION WIDTH 12.7 % (11.6-17.2); WHITE BLOOD COUNT 15.7 TH/MM3 (4.0-11.0)
[2017-12-25 06:10] LABS: ALBUMIN 2.9 GM/DL (3.4-5.0)
[2017-12-25 06:13] LABS: DIRECT BILIRUBIN ADULT 0.7 MG/DL (0.0-0.2)
[2017-12-25 06:15] LABS: INDIRECT BILIRUBIN 0.4 MG/DL (0.0-0.8); TOTAL BILIRUBIN ADULT 1.1 MG/DL (0.2-1.0)
[2017-12-25] MEDS ORDERED: SODIUM CHLOR 0.9% 250 ML INJ 250 ML IV ONE ×2 (07:15→11:30)
[2017-12-25 07:47] LABS: INTERNATIONAL NORMALIZED RATIO 1.2 RATIO; PROTHROMBIN TIME - PATIENT 11.8 SEC (9.8-11.6)
[2017-12-25 08:01] LABS: HEMATOCRIT 24.1 % (39.0-51.0); HEMOGLOBIN 8.5 GM/DL (13.0-17.0)
[2017-12-25] MEDS: SODIUM CHLORIDE 0.9% FLUSH 10 ML FLUSH IV FLUSH SCH ×2 (08:44→20:06)
--- NOTE | 2017-12-25 09:20 | EKG ---
Date Performed: 12/23/2017 Time Performed: 16:43:40 PTAGE: 72 years EKG: Sinus rhythm INCOMPLETE RIGHT BUNDLE BRANCH BLOCK BORDERLINE ECG Since the PREVIOUS TRACING , no significant change noted PREVIOUS TRACIN12/21/2017 04.46 DOCTOR: Pedro Pablo Anne Interpretating Date/Time 12/25/2017 09:15:02
[2017-12-25] MEDS: HYDROmorphone HCL PF 2 MG/ML VIAL IV PUSH PRN ×4 (09:39→22:43)
[2017-12-25] MEDS ORDERED: SODIUM CHLOR 0.9% 1000 ML INJ 1,000 ML IV ONE ×2 (11:00→14:15)
[2017-12-25] MEDS ORDERED: diphenhydrAMINE HCL 25 MG CAP PO PRN (11:30)
[2017-12-25] MEDS ORDERED: ACETAMINOPHEN 325 MG TAB PO PRN (11:30)
[2017-12-25] MEDS: SODIUM CHLOR 0.9% 1000 ML INJ 1,000 ML IV SCH ×2 (11:59→19:00)
[2017-12-25 13:43] LABS: HEMATOCRIT 24.1 % (39.0-51.0); HEMOGLOBIN 8.1 GM/DL (13.0-17.0)
[2017-12-25] MEDS: METOPROLOL TARTRATE 5 MG/5 ML VIAL IV PUSH PRN ×2 (15:01→16:54)
[2017-12-25] MEDS ORDERED: HYDROmorphone HCL PF 1 MG/ML VIAL IV PUSH ONE (16:00)
--- NOTE | 2017-12-25 16:24 | PD.CAR.PN ---
CVT Progress Note Subjective/Hospital Course: Referral received 72-year-old male with biliary colic in September this year was admitted treated and advised on follow-up care Patient was supposed to follow-up with my office but never did so now returns with another bout of right upper quadrant pain. Bilirubin is slightly elevated and will see which way this goes but in general patient will require laparoscopic cholecystectomy at this admission Full consult to follow [facility] 12/25/2017 Patient status post laparoscopic cholecystectomy for fairly diseased gallbladder and with cirrhotic liver and left a fairly large oral area on the liver surface He drained fair amount of fluid from his ADOLFO drain initially bloody now serosanguineous for left most of the irrigant in the abdomen Hemoglobin dropped from 10 g/dL to 8 g/dL is not unexpected with fluid hydration in the OR and postop Patient developed atrial fibrillation this afternoon and is now being worked up for possible pulmonary embolism I doubt the PE considering all the clinical indices. Patient is not taking deep breaths barely got out of bed is complaining of the pain in the right upper quadrant which I can see he has however unfortunately patient is a large amount of Roxicodone's at home for the last 15 years so his pain threshold is very low A. fib management as per Dr. Scanlon. This patient is 72-year-old with multiple medical problems and complications are not uncommon in a situation like this, patient has not time to be worked up. That is the reason I wanted to see patient electively in my office and work him up after the first attack but he never came ADOLFO drainage has dried upto about 20cc/h of SS fluid. Hgb 9.1 after rehydration. Addendum As suspected, CTA is neg for PE. Abdominal CT is normal with minimal post op changes. No collections, clots or other issues. Patient has atelectasis R base and needs to breathe and walk. 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 Nothing to add from surgery point. Objective: Vital Signs Date Time Temp Pulse Resp B/P (MAP) Pulse Ox O2 Delivery O2 Flow Rate FiO2 12/25/17 15:23 126 34 112/67 (82) 91 12/25/17 14:06 152 30 135/81 (99) 92 12/25/17 14:00 148 32 92 12/25/17 13:01 106 28 116/68 (84) 92 12/25/17 13:00 106 23 92 12/25/17 12:26 20 12/25/17 12:26 20 12/25/17 12:00 98.7 12/25/17 11:14 92 Nasal Cannula 3.00 12/25/17 09:31 98.3 23 133/70 (91) 95 12/25/17 04:00 98.2 95 20 95/54 (68) 93 12/25/17 00:00 98.3 109 20 84/54 (64) 94 12/24/17 20:55 96 Nasal Cannula 4.00 12/24/17 20:00 99.6 106 20 100/59 (73) 97 12/24/17 18:21 98.7 107 16 110/55 (73) 97 Labs: Laboratory Tests Test 12/25/17 05:30 12/25/17 07:30 12/25/17 13:15 12/25/17 14:55 White Blood Count 15.7 TH/MM3 (4.0-11.0) Red Blood Count 2.68 MIL/MM3 (4.50-5.90) Hemoglobin 8.6 GM/DL (13.0-17.0) 8.5 GM/DL (13.0-17.0) 8.1 GM/DL (13.0-17.0) Hematocrit 24.6 % (39.0-51.0) 24.1 % (39.0-51.0) 24.1 % (39.0-51.0) Mean Corpuscular Volume 91.8 FL (80.0-100.0) Mean Corpuscular Hemoglobin 32.1 PG (27.0-34.0) Mean Corpuscular Hemoglobin Concent 35.0 % (32.0-36.0) Red Cell Distribution Width 12.7 % (11.6-17.2) Platelet Count 190 TH/MM3 (150-450) Mean Platelet Volume 9.3 FL (7.0-11.0) Neutrophils (%) (Auto) 82.7 % (16.0-70.0) Lymphocytes (%) (Auto) 5.5 % (9.0-44.0) Monocytes (%) (Auto) 11.4 % (0.0-8.0) Eosinophils (%) (Auto) 0.2 % (0.0-4.0) Basophils (%) (Auto) 0.2 % (0.0-2.0) Neutrophils # (Auto) 13.0 TH/MM3 (1.8-7.7) Lymphocytes # (Auto) 0.9 TH/MM3 (1.0-4.8) Monocytes # (Auto) 1.8 TH/MM3 (0-0.9) Eosinophils # (Auto) 0.0 TH/MM3 (0-0.4) Basophils # (Auto) 0.0 TH/MM3 (0-0.2) CBC Comment AUTO DIFF Differential Comment AUTO DIFF CONFIRMED Total Bilirubin 1.1 MG/DL (0.2-1.0) Direct Bilirubin 0.7 MG/DL (0.0-0.2) Indirect Bilirubin 0.4 MG/DL (0.0-0.8) Aspartate Amino Transf (AST/SGOT) 49 U/L (15-37) Alanine Aminotransferase (ALT/SGPT) 60 U/L (12-78) Alkaline Phosphatase 75 U/L (45-117) Total Protein 6.0 GM/DL (6.4-8.2) Albumin 2.9 GM/DL (3.4-5.0) Prothrombin Time 11.8 SEC (9.8-11.6) Prothromb Time International Ratio 1.2 RATIO Activated Partial Thromboplast Time 25.5 SEC (24.3-30.1) Fibrinogen 392 mg/dL (227-377) Troponin I 0.09 NG/ML (0.02-0.05) Result Diagram: 12/25/17 1315 12/24/17 0550 Lorraine Sesay MD Dec 25, 2017 16:24
--- NOTE | 2017-12-25 17:41 | RADRPT ---
EXAM DATE: 12/25/2017 5:35 PM EDT AGE/SEX: 72 years / Male INDICATIONS: Short of breath. Post cholecystectomy. CLINICAL DATA: This is the patient's initial encounter. Patient reports that signs and symptoms have been present for 1 day and indicates a pain score of 5/10. MEDICAL/SURGICAL HISTORY: Chronic obstructive pulmonary disease. Cardiovascular disease. Hepatiti s C. Asthma. Cirrhosis. Cholecystectomy. RADIATION DOSE: 17.49 CTDI (mGy) COMPARISON: No prior exams available for comparison. TECHNIQUE: Volumetric scanning was performed using a multi-row detector CT scanner during bolus infu chadd of 95 ml Omnipaque 350 (iohexol) nonionic water-soluble contrast as a cumulative dose for multi ple exams. The data was post processed with a variety of visualization algorithms including full volu me maximum intensity projection and sliding thin slab reformation. Using automated exposure control a nd adjustment of the mA and/or kV according to patient size, radiation dose was kept as low as reason ably achievable to obtain optimal diagnostic quality images. DICOM format image data is available el ectronically for review and comparison. FINDINGS: Pulmonary Arteries: No filling defects are seen in the pulmonary arteries out to the subsegmental ve ssels. The left and right pulmonary arteries are normal in diameter. Lung: There is increased density in the subpleural region seen at the posterior right upper lobe. Th ere is increased density seen in the lower lobes bilaterally. Effusion: None. Mediastinum: No evidence of mediastinal or hilar adenopathy. Coronary artery calcified lesions are p resent. Other: The axilla is unremarkable. There is free intraperitoneal air seen anterior to the liver. The patient is scheduled for a CT of the abdomen and pelvis to follow. CONCLUSION: 1. No pulmonary embolus. 2. Free intraperitoneal air. 3. There is increased density seen at the lower lobes and the right upper lobe likely related to are as of consolidation or atelectasis. Electronically signed by: Getachew Batres MD 12/25/2017 5:39 PM EDT
[2017-12-25] MEDS ORDERED: IOHEXOL 350 MG/ML 10 ML VIAL (for RAD DIAG) IVCONTRAST ONE (17:42)
--- NOTE | 2017-12-25 17:43 | HHI.PR ---
Subjective Remarks Follow-up for acute cholecystitis. Patient complains of significant pain from the surgical site. He is also tachypneic and tachycardic. Later in the day patient continued to have pain and his heart rate went up to 150s-170s. EKG showed atrial fibrillation consistent with the monitor rhythm. His blood pressure was also low and we started him already on IV fluid. He also received 1 unit of PRBCs per surgeon. Objective Vitals Vital Signs Date Time Temp Pulse Resp B/P (MAP) Pulse Ox O2 Delivery O2 Flow Rate FiO2 12/25/17 16:01 120 44 116/68 (84) 87 12/25/17 15:23 126 34 112/67 (82) 91 12/25/17 14:06 152 30 135/81 (99) 92 12/25/17 14:00 148 32 92 12/25/17 13:01 106 28 116/68 (84) 92 12/25/17 13:00 106 23 92 12/25/17 12:26 20 12/25/17 12:26 20 12/25/17 12:00 98.7 12/25/17 11:14 92 Nasal Cannula 3.00 12/25/17 09:31 98.3 23 133/70 (91) 95 12/25/17 04:00 98.2 95 20 95/54 (68) 93 12/25/17 00:00 98.3 109 20 84/54 (64) 94 12/24/17 20:55 96 Nasal Cannula 4.00 12/24/17 20:00 99.6 106 20 100/59 (73) 97 12/24/17 18:21 98.7 107 16 110/55 (73) 97 I/O 12/24/17 12/24/17 12/24/17 12/25/17 12/25/17 12/25/17 07:00 15:00 23:00 07:00 15:00 23:00 Intake Total 1200 ml 800 ml 240 ml 420 ml Output Total 450 ml 300 ml 535 ml 525 ml 110 ml Balance -450 ml 900 ml 265 ml -285 ml -110 ml 420 ml Intake Oral 240 ml IV Total 1200 ml 800 ml Packed Cells 400 ml Blood Product IV Normal Saline Flush 20 ml Output Urine Total 450 ml 200 ml Drainage Total 100 ml 535 ml 325 ml 110 ml Estimated Blood Loss 200 ml # Bowel Movements 0 Result Diagram: 12/25/17 1315 12/24/17 0550 Imaging Last Impressions Chest X-Ray 12/23/17 0000 Signed Impressions: CONCLUSION: No acute cardiopulmonary processes. Gall Bladder Ultrasound 12/22/17 0000 Signed Impressions: CONCLUSION: 1. Gallstones in the gallbladder. No biliary tract obstruction. 2. Pancreas was not visualized. Objective Remarks GENERAL: Alert, oriented 3, NAD. SKIN: Warm and dry. HEAD: Normocephalic. EYES: No scleral icterus. No injection or drainage. NECK: Supple, trachea midline. No JVD or lymphadenopathy. CARDIOVASCULAR: Regular rate and rhythm without murmurs, gallops, or rubs. RESPIRATORY: Breath sounds equal bilaterally. No accessory muscle use. GASTROINTESTINAL: Abdomen soft, tender to palpation of her right upper quadrant , nondistended. MUSCULOSKELETAL: No cyanosis, or edema. BACK: Nontender without obvious deformity. No CVA tenderness. Procedures None A/P Problem List: (1) Acute cholecystitis ICD Code: K81.0 - Acute cholecystitis Status: Acute Assessment and Plan Mr. Latif is a 72-year-old male who presents to the emergency department due to right upper quadrant abdominal pain that has been going on for 5 days. Patient was evaluated in the emergency department on 12/21/2017. However due to worsening abdominal pain he decided to come back to the emergency department. Acute cholecystitis -Gallbladder ultrasound shows gallstone. No biliary tract obstruction -Pt denies any allergies to PCN. Continue ceftriaxone 2g Qday -Pain management with Percocet and Dilaudid PRN. -Patient underwent laparoscopic cholecystectomy on 12/24/2017 Hypotension Acute blood loss anemia postsurgery Hemoglobin was 14.7 on admission. It dropped to 10.5 and subsequently around 8.5 today. Discussed with surgeon who recommended 1 unit of blood transfusion. We also provided fluid bolus. Hypotension is currently resolved. Continue IV fluid. Due to concern over significant hemoglobin drop, will obtain CTA of abdomen and pelvis. New onset atrial fibrillation No history of A. fib before. We provided 2 doses of IV metoprolol tartrate 5 mg to control the heart rate. Will start patient on metoprolol 50 mg twice daily. Acute respiratory failure Patient's oxygen saturation remained in the low 90s and upper 80s on 3-4 L of oxygen. Respiration rate mostly above 30. Will obtain CTA of chest to rule out pulmonary embolism. COPD -no acute exacerbation. Continue DuoNeb as needed. Full code. Ambulation, SCDs. 12/25/2017: In summary, patient underwent laparoscopic cholecystectomy on 2017. His initial hemoglobin was about 14. Postsurgery his hemoglobin dropped to 10.5 and then subsequently 8.5. Patient also became hypotensive as well as tachypneic and tachycardic. Patient was subsequently transferred to intensive care unit. Due to hypotension we infused fluid boluses and continued IV fluid. I discussed with the surgeon who recommended 1 unit of PRBC transfusion. In the afternoon patient also went into atrial fibrillation with heart rate in the 160s and 170s. We provided metoprolol tartrate IV 5 mg twice. We also obtain CT a of chest as well as CTA abdomen pelvis. Patient was upgraded to ICU status. Total critical care time spent over 45 minutes. Huan Scanlon DO Dec 25, 2017 17:43
--- NOTE | 2017-12-25 17:51 | RADRPT ---
EXAM DATE: 12/25/2017 5:36 PM EDT AGE/SEX: 72 years / Male INDICATIONS: Post lap cholecystectomy. Severe pain. CLINICAL DATA: This is the patient's initial encounter. Patient reports that signs and symptoms have been present for 2 days and indicates a pain score of 9/10. MEDICAL/SURGICAL HISTORY: Chronic obstructive pulmonary disease. Cerebrovascular disease. Cir rhosis. Asthma. Hep C. Cholecystectomy. ORAL CONTRAST: No oral contrast ingested. RADIATION DOSE: 13.39 CTDI (mGy) COMPARISON: [facility], CT ABDOMEN & PELVIS W CONTRAST, 09/19/2016. . TECHNIQUE: Multiple contiguous axial images were obtained through the abdomen and pelvis following b olus infusion of 95 ml Omnipaque 350 (iohexol) nonionic water-soluble contrast as a cumulative dose for multiple exams. No oral contrast ingested. Using automated exposure control and adjustment of t he mA and/or kV according to patient size, radiation dose was kept as low as reasonably achievable to obtain optimal diagnostic quality images. DICOM format image data is available electronically for r eview and comparison. FINDINGS: Lower Lungs: There is consolidation of the lower lobes bilaterally. Liver: There are several small hypodensities seen in the liver measuring up to 1 cm. These are nonspe cific. They could represent cysts or hemangiomas. They were present previously. The patient is status post cholecystectomy. There is a drain in the right upper quadrant. This accounts for the free intra peritoneal air. There is some fluid in the gallbladder fossa. Spleen: Homogeneous density without enlargement. Pancreas: Unremarkable without mass or calcification. Kidneys: Normal in size and shape. No evidence of mass or hydronephrosis. Adrenal Glands: Unremarkable. Aorta: Arterial calcifications are seen. The aorta is normal in size. 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 Bowel/Mesentery: There are colonic diverticula in the sigmoid region and descending colon. Abdominal Wall: Intact. Retroperitoneum: No evidence of adenopathy in the retrocrural, para-aortic, or deep pelvic regions. Bladder: There is a Tipton catheter in the urinary bladder. Reproductive Organs: No abnormal masses or calcifications seen. Inguinal: The inguinal region is unremarkable without evidence of adenopathy. Bony Structures: Unremarkable. CONCLUSION: Postoperative change from cholecystectomy with some fluid in the gallbladder fossa. There is a drain in place. An abscess is not present. There is free intraperitoneal air. Electronically signed by: Getachew Batres MD 12/25/2017 5:50 PM EDT
[2017-12-25] MEDS ORDERED: METOPROLOL TARTRATE 50 MG TAB PO ONE (19:00)
[2017-12-25 19:49] LABS: HEMATOCRIT 26.8 % (39.0-51.0); HEMOGLOBIN 9.1 GM/DL (13.0-17.0)
[2017-12-25] MEDS: cefTRIAXone INJ 2,000 MG in SODIUM CHLORIDE 0.9% INJ 100 ML IV SCH (20:00)
[2017-12-26] VITALS (21 sets, daily range): BP systolic 98–142; BP diastolic 60–82; PULSE 80–107; RESP 14–43; TEMP 97.8–101.6; O2SAT 84–96
[2017-12-26] MEDS: HYDROmorphone HCL PF 2 MG/ML VIAL IV PUSH PRN ×8 (03:21→23:12)
[2017-12-26] MEDS: SODIUM CHLOR 0.9% 1000 ML INJ 1,000 ML IV SCH ×3 (05:27→22:00)
[2017-12-26] MEDS: SODIUM CHLORIDE 0.9% FLUSH 10 ML FLUSH IV FLUSH SCH ×2 (09:00→20:42)
[2017-12-26] MEDS: METOPROLOL TARTRATE 50 MG TAB PO SCH ×2 (09:29→20:42)
--- NOTE | 2017-12-26 11:36 | HHI.PR ---
Subjective Remarks Follow-up for acute cholecystitis, post-surgery Afib. Patient is currently doing well. Pain is better. No fever, chills. Objective Vitals Vital Signs Date Time Temp Pulse Resp B/P (MAP) Pulse Ox O2 Delivery O2 Flow Rate FiO2 12/26/17 11:00 96 21 140/74 (96) 87 12/26/17 08:05 86 26 136/79 (98) 94 12/26/17 07:30 95 Nasal Cannula 2.00 12/26/17 07:01 98.9 88 21 119/71 (87) 12/26/17 06:09 86 22 84 12/26/17 06:08 86 21 84 12/26/17 05:57 16 12/26/17 05:28 92 25 123/76 (92) 92 12/26/17 04:16 99.0 80 18 117/64 (81) 93 12/26/17 04:16 99.0 80 18 117/64 (81) 93 12/26/17 03:03 80 14 94 12/26/17 02:05 82 22 95 12/26/17 02:01 80 23 115/82 (93) 95 12/26/17 01:07 80 21 95 12/26/17 01:01 80 18 98/60 (73) 96 12/26/17 00:14 90 25 93 12/25/17 23:53 100.0 106 37 97/61 (73) 94 12/25/17 22:00 94 21 102/59 (73) 96 12/25/17 21:00 96 20 95/62 (73) 94 12/25/17 20:40 94 Nasal Cannula 3.00 12/25/17 20:27 100.0 108 18 114/51 (72) 77 12/25/17 18:28 144 33 111/72 (85) 93 12/25/17 17:01 130 28 90/56 (67) 92 12/25/17 17:00 98.3 132 30 112/69 (83) 92 12/25/17 16:01 120 44 116/68 (84) 87 12/25/17 15:23 126 34 112/67 (82) 91 12/25/17 14:06 152 30 135/81 (99) 92 12/25/17 14:00 148 32 92 12/25/17 13:01 106 28 116/68 (84) 92 12/25/17 13:00 106 23 92 12/25/17 12:26 20 12/25/17 12:00 98.7 I/O 12/25/17 12/25/17 12/25/17 12/26/17 12/26/17 12/26/17 07:00 15:00 23:00 07:00 15:00 23:00 Intake Total 240 ml 4480 ml Output Total 525 ml 110 ml 1020 ml 1370 ml Balance -285 ml -110 ml 3460 ml -1370 ml Intake Oral 240 ml 460 ml IV Total 3200 ml Packed Cells 800 ml Blood Product IV Normal Saline Flush 20 ml Output Urine Total 200 ml 940 ml 1200 ml Drainage Total 325 ml 110 ml 80 ml 170 ml Result Diagram: 12/25/17 1920 12/24/17 [address] Angiography 12/25/17 0000 Signed Impressions: CONCLUSION: 1. No pulmonary embolus. 2. Free intraperitoneal air. 3. There is increased density seen at the lower lobes and the right upper lobe likely related to areas of consolidation or atelectasis. Abdomen/Pelvis CT 12/25/17 0000 Signed Impressions: CONCLUSION: Postoperative change from cholecystectomy with some fluid in the gallbladder fo ssa. There is a drain in place. An abscess is not present. There is free intrap eritoneal air. Chest X-Ray 12/23/17 0000 Signed Impressions: CONCLUSION: No acute cardiopulmonary processes. Gall Bladder Ultrasound 12/22/17 0000 Signed Impressions: CONCLUSION: 1. Gallstones in the gallbladder. No biliary tract obstruction. 2. Pancreas was not visualized. Objective Remarks GENERAL: Alert, oriented 3, NAD. SKIN: Warm and dry. HEAD: Normocephalic. EYES: No scleral icterus. No injection or drainage. NECK: Supple, trachea midline. No JVD or lymphadenopathy. CARDIOVASCULAR: Regular rate and rhythm without murmurs, gallops, or rubs. RESPIRATORY: Breath sounds equal bilaterally. No accessory muscle use. GASTROINTESTINAL: Abdomen soft, tender to palpation of her right upper quadrant , nondistended. MUSCULOSKELETAL: No cyanosis, or edema. BACK: Nontender without obvious deformity. No CVA tenderness. Procedures None A/P Problem List: (1) Acute cholecystitis ICD Code: K81.0 - Acute cholecystitis Status: Acute Assessment and Plan Mr. Latif is a 72-year-old male who presents to the emergency department due to right upper quadrant abdominal pain that has been going on for 5 days. Patient was evaluated in the emergency department on 12/21/2017. However due to worsening abdominal pain he decided to come back to the emergency department. Acute cholecystitis -Gallbladder ultrasound shows gallstone. No biliary tract obstruction -Pt denies any allergies to PCN. Continue ceftriaxone 2g Qday -Pain management with Percocet and Dilaudid PRN. -Patient underwent laparoscopic cholecystectomy on 12/24/2017 -Discussed with Dr. Grande who recommended discontinuing ADOLFO Drain today. We will plan on discharging patient on 12/27/2017. -Transfer patient to the floor with telemetry. Hypotension Acute blood loss anemia postsurgery Hemoglobin was 14.7 on admission. Received one unit of PRBCs yesterday. Hgb 9.1 today. Hypotension is currently resolved. Continue IV fluid. CTA chest, Abd/Pelvis completed yesterday - no PE, no bleeding. New onset atrial fibrillation metoprolol 50 mg twice daily. Patient's [id number] score is 1 (Age). He maybe okay with Aspirin 81mg Qday. However, due to his bleeding post-surgery, we will hold off using aspirin for now. Acute respiratory failure Currently doing well 2-3L of O2 via NC. CT PE study did not reveal any PE. COPD -no acute exacerbation. Continue DuoNeb as needed. Full code. Ambulation, SCDs. Discharge plan: Will transfer patient to the floor today with telemetry. D/C [place]. D/C ADOLFO drain. Will observe patient overnight. If stable, will d/c home on 12/27/2017. Huan Scanlon DO Dec 26, 2017 11:36
--- NOTE | 2017-12-26 13:20 | PD.CAR.PN ---
CVT Progress Note Subjective/Hospital Course: Referral received 72-year-old male with biliary colic in September this year was admitted treated and advised on follow-up care Patient was supposed to follow-up with my office but never did so now returns with another bout of right upper quadrant pain. Bilirubin is slightly elevated and will see which way this goes but in general patient will require laparoscopic cholecystectomy at this admission Full consult to follow Thanks J 12/25/2017 Patient status post laparoscopic cholecystectomy for fairly diseased gallbladder and with cirrhotic liver and left a fairly large oral area on the liver surface He drained fair amount of fluid from his ADOLFO drain initially bloody now serosanguineous for left most of the irrigant in the abdomen Hemoglobin dropped from 10 g/dL to 8 g/dL is not unexpected with fluid hydration in the OR and postop Patient developed atrial fibrillation this afternoon and is now being worked up for possible pulmonary embolism I doubt the PE considering all the clinical indices. Patient is not taking deep breaths barely got out of bed is complaining of the pain in the right upper quadrant which I can see he has however unfortunately patient is a large amount of Roxicodone's at home for the last 15 years so his pain threshold is very low A. fib management as per Dr. Scanlon. This patient is 72-year-old with multiple medical problems and complications are not uncommon in a situation like this, patient has not time to be worked up. That is the reason I wanted to see patient electively in my office and work him up after the first attack but he never came ADOLFO drainage has dried upto about 20cc/h of SS fluid. Hgb 9.1 after rehydration. Addendum As suspected, CTA is neg for PE. Abdominal CT is normal with minimal post op changes. No collections, clots or other issues. Patient has atelectasis R base and needs to breathe and walk. 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 Nothing to add from surgery point. 12/26/2017 Patient better Pain controlled and respiratory effort improved A-fib converted to normal SR. Troponins declining Abdomen and chest CT negative for either PE or any collections Tolerates diet DC ADOLFO Patient can go home from my point anytime. FU with me 2 weeks Objective: Vital Signs Date Time Temp Pulse Resp B/P (MAP) Pulse Ox O2 Delivery O2 Flow Rate FiO2 12/26/17 11:00 96 21 140/74 (96) 87 12/26/17 08:05 86 26 136/79 (98) 94 12/26/17 07:30 95 Nasal Cannula 2.00 12/26/17 07:01 98.9 88 21 119/71 (87) 12/26/17 06:09 86 22 84 12/26/17 06:08 86 21 84 12/26/17 05:57 16 12/26/17 05:28 92 25 123/76 (92) 92 12/26/17 04:16 99.0 80 18 117/64 (81) 93 12/26/17 04:16 99.0 80 18 117/64 (81) 93 12/26/17 03:03 80 14 94 12/26/17 02:05 82 22 95 12/26/17 02:01 80 23 115/82 (93) 95 12/26/17 01:07 80 21 95 12/26/17 01:01 80 18 98/60 (73) 96 12/26/17 00:14 90 25 93 12/25/17 23:53 100.0 106 37 97/61 (73) 94 12/25/17 22:00 94 21 102/59 (73) 96 12/25/17 21:00 96 20 95/62 (73) 94 12/25/17 20:40 94 Nasal Cannula 3.00 12/25/17 20:27 100.0 108 18 114/51 (72) 77 12/25/17 18:28 144 33 111/72 (85) 93 12/25/17 17:01 130 28 90/56 (67) 92 12/25/17 17:00 98.3 132 30 112/69 (83) 92 12/25/17 16:01 120 44 116/68 (84) 87 12/25/17 15:23 126 34 112/67 (82) 91 12/25/17 14:06 152 30 135/81 (99) 92 12/25/17 14:00 148 32 92 Result Diagram: 12/25/17 1920 12/24/17 0550 Lorraine Sesay MD Dec 26, 2017 13:20
--- NOTE | 2017-12-26 17:42 | EKG ---
Date Performed: 12/25/2017 Time Performed: 14:58:36 PTAGE: 72 years EKG: ATRIAL FIBRILLATION WITH RAPID VENTRICULAR RESPONSE NONSPECIFIC ST & T-WAVE ABNORMALITY ABN ORMAL RHYTHM ECG Atrial fibrillation and the ST changes are new from prior tracing. PREVIOUS TRACING : 12/23/2017 16.43 DOCTOR: Eloy Vincent Interpretating Date/Time 12/26/2017 17:41:42
[2017-12-26] MEDS: cefTRIAXone INJ 2,000 MG in SODIUM CHLORIDE 0.9% INJ 100 ML IV SCH (20:37)
[2017-12-27] VITALS (9 sets, daily range): BP systolic 123–165; BP diastolic 62–88; PULSE 72–91; RESP 18–20; TEMP 98.8–100.7; O2SAT 93–96
[2017-12-27] MEDS: HYDROmorphone HCL PF 2 MG/ML VIAL IV PUSH PRN ×3 (01:17→06:43)
[2017-12-27 06:20] LABS: HEMATOCRIT 23.7 % (39.0-51.0); HEMOGLOBIN 7.9 GM/DL (13.0-17.0)
[2017-12-27] MEDS: SODIUM CHLORIDE 0.9% FLUSH 10 ML FLUSH IV FLUSH SCH ×2 (07:26→20:36)
[2017-12-27] MEDS: METOPROLOL TARTRATE 50 MG TAB PO SCH ×2 (08:20→20:36)
[2017-12-27 08:33] LABS: AUTOMATED NEUTROPHIL # 10.6 TH/MM3 (1.8-7.7); BASOPHIL # 0.1 TH/MM3 (0-0.2); BASOPHIL % 0.4 % (0.0-2.0); CHLORIDE 105 MEQ/L (98-107); EOSINOPHIL # 0.3 TH/MM3 (0-0.4); EOSINOPHIL % 2.1 % (0.0-4.0); LYMPH % 9.1 % (9.0-44.0); LYMPHOCYTE # 1.2 TH/MM3 (1.0-4.8); MEAN CELL VOLUME 90.3 FL (80.0-100.0); MEAN CORPUSCULAR HEMOGLOBIN 30.5 PG (27.0-34.0); MEAN CORPUSCULAR HGB CONC 33.7 % (32.0-36.0); MEAN PLATELET VOLUME 9.7 FL (7.0-11.0); MONO % 10.6 % (0.0-8.0); MONOCYTE # 1.5 TH/MM3 (0-0.9); NEUT % 77.8 % (16.0-70.0); PLATELET COUNT 185 TH/MM3 (150-450); RED BLOOD COUNT 2.61 MIL/MM3 (4.50-5.90); RED CELL DISTRIBUTION WIDTH 14.9 % (11.6-17.2); SODIUM (NA) 140 MEQ/L (136-145); WHITE BLOOD COUNT 13.7 TH/MM3 (4.0-11.0)
[2017-12-27] MEDS: oxyCODONE/ACETAMINOPHEN 7.5 MG/325 MG TAB PO PRN ×4 (08:34→21:26)
[2017-12-27 08:37] LABS: CALCIUM 7.9 MG/DL (8.5-10.1)
[2017-12-27 08:38] LABS: ALBUMIN 2.7 GM/DL (3.4-5.0); BICARBONATE 26.2 MEQ/L (21.0-32.0); BLOOD UREA NITROGEN 11 MG/DL (7-18); GLUCOSE,RANDOM 104 MG/DL (74-106)
[2017-12-27 08:41] LABS: ALT (GPT) 40 U/L (12-78); AST (GOT) 29 U/L (15-37); CREATININE 0.85 MG/DL (0.60-1.30); GLOMERULAR FILTRATION RATE 89 ML/MIN (>89)
[2017-12-27 08:42] LABS: TOTAL PROTEIN 5.9 GM/DL (6.4-8.2)
[2017-12-27 08:44] LABS: ALKALINE PHOSPHATASE 126 U/L (45-117)
--- NOTE | 2017-12-27 09:09 | HHI.PR ---
Subjective Remarks Follow-up for acute cholecystitis, post-surgery Afib, now converted to NSR. Patient complains of right sided abdominal pain. He had mild fever as well. No obvious external bleeding. Objective Vitals Vital Signs Date Time Temp Pulse Resp B/P (MAP) Pulse Ox O2 Delivery O2 Flow Rate FiO2 12/27/17 07:26 100.7 91 20 165/88 (113) 93 12/27/17 05:14 18 12/27/17 04:00 99.7 84 18 149/81 (103) 94 12/27/17 00:00 98.8 72 18 132/62 (85) 95 12/26/17 21:24 94 Nasal Cannula 2.00 12/26/17 20:00 107 12/26/17 20:00 101.6 102 18 132/71 (91) 94 12/26/17 18:00 88 43 136/76 (96) 96 12/26/17 16:00 98.8 82 26 127/74 (91) 95 12/26/17 15:00 88 26 142/78 (99) 12/26/17 14:00 97.8 82 21 130/71 (90) 95 12/26/17 12:00 80 20 103/66 (78) 90 12/26/17 11:00 96 21 140/74 (96) 87 I/O 12/26/17 12/26/17 12/26/17 12/27/17 12/27/17 12/27/17 07:00 15:00 23:00 07:00 15:00 23:00 Intake Total 1820 ml 240 ml Output Total 1370 ml 990 ml 1150 ml Balance -1370 ml 830 ml -910 ml Intake Oral 720 ml 240 ml IV Total 1100 ml Output Urine Total 1200 ml 900 ml 1150 ml Drainage Total 170 ml 90 ml # Bowel Movements 2 Result Diagram: 12/27/17 0543 12/27/17 [address] Angiography 12/25/17 0000 Signed Impressions: CONCLUSION: 1. No pulmonary embolus. 2. Free intraperitoneal air. 3. There is increased density seen at the lower lobes and the right upper lobe likely related to areas of consolidation or atelectasis. Abdomen/Pelvis CT 12/25/17 0000 Signed Impressions: CONCLUSION: Postoperative change from cholecystectomy with some fluid in the gallbladder fo ssa. There is a drain in place. An abscess is not present. There is free intrap eritoneal air. Chest X-Ray 12/23/17 Signed Impressions: CONCLUSION: No acute cardiopulmonary processes. Gall Bladder Ultrasound 12/22/17 0000 Signed Impressions: CONCLUSION: 1. Gallstones in the gallbladder. No biliary tract obstruction. 2. Pancreas was not visualized. Objective Remarks GENERAL: Alert, oriented 3, NAD. SKIN: Warm and dry. HEAD: Normocephalic. EYES: No scleral icterus. No injection or drainage. NECK: Supple, trachea midline. No JVD or lymphadenopathy. CARDIOVASCULAR: Regular rate and rhythm without murmurs, gallops, or rubs. RESPIRATORY: Breath sounds equal bilaterally. No accessory muscle use. GASTROINTESTINAL: Abdomen soft, tender to palpation of her right upper quadrant , nondistended. MUSCULOSKELETAL: No cyanosis, or edema. BACK: Nontender without obvious deformity. No CVA tenderness. Procedures None A/P Problem List: (1) Acute cholecystitis ICD Code: K81.0 - Acute cholecystitis Status: Acute Assessment and Plan Mr. Latif is a 72-year-old male who presents to the emergency department due to right upper quadrant abdominal pain that has been going on for 5 days. Patient was evaluated in the emergency department on 12/21/2017. However due to worsening abdominal pain he decided to come back to the emergency department. Acute cholecystitis -Gallbladder ultrasound shows gallstone. No biliary tract obstruction -Pt denies any allergies to PCN. Continue ceftriaxone 2g Qday -Pain management with Percocet and Dilaudid PRN. -Patient underwent laparoscopic cholecystectomy on 12/24/2017 -ADOLFO Drain discontinued on 12/27/2017. Hypotension - resolved. Acute blood loss anemia postsurgery Hemoglobin was 14.7 on admission. Hgb dropped to 8.1, improved to 9.1 after one unit of PRBCs. Today, Hgb is 7.9. Will check H&H this afternoon. Hypotension is currently resolved. d/c IV fluid. CTA chest, Abd/Pelvis completed on 12/25/2017 - no PE, no bleeding. If Hgb this afternoon shows further decrease in Hgb, we will obtain CT abd/ pelvis without contrast. New onset atrial fibrillation metoprolol 50 mg twice daily. Patient's [id number] score is 1 (Age). He maybe okay with Aspirin 81mg Qday. However, due to his bleeding post-surgery, we will hold off using aspirin for now. Acute respiratory failure Currently doing well 2-3L of O2 via NC. CT PE study did not reveal any PE. COPD -no acute exacerbation. Continue DuoNeb as needed. Full code. Ambulation, SCDs. Huan Scanlon DO Dec 27, 2017 09:09
[2017-12-27] MEDS: SODIUM CHLOR 0.9% 1000 ML INJ 1,000 ML IV SCH (10:14)
--- NOTE | 2017-12-27 14:48 | PD.CAR.PN ---
CVT Progress Note Subjective/Hospital Course: Referral received 72-year-old male with biliary colic in September this year was admitted treated and advised on follow-up care Patient was supposed to follow-up with my office but never did so now returns with another bout of right upper quadrant pain. Bilirubin is slightly elevated and will see which way this goes but in general patient will require laparoscopic cholecystectomy at this admission Full consult to follow Thanks J 12/25/2017 Patient status post laparoscopic cholecystectomy for fairly diseased gallbladder and with cirrhotic liver and left a fairly large oral area on the liver surface He drained fair amount of fluid from his ADOLFO drain initially bloody now serosanguineous for left most of the irrigant in the abdomen Hemoglobin dropped from 10 g/dL to 8 g/dL is not unexpected with fluid hydration in the OR and postop Patient developed atrial fibrillation this afternoon and is now being worked up for possible pulmonary embolism I doubt the PE considering all the clinical indices. Patient is not taking deep breaths barely got out of bed is complaining of the pain in the right upper quadrant which I can see he has however unfortunately patient is a large amount of Roxicodone's at home for the last 15 years so his pain threshold is very low A. fib management as per Dr. Scanlon. This patient is 72-year-old with multiple medical problems and complications are not uncommon in a situation like this, patient has not time to be worked up. That is the reason I wanted to see patient electively in my office and work him up after the first attack but he never came ADOLFO drainage has dried upto about 20cc/h of SS fluid. Hgb 9.1 after rehydration. Addendum As suspected, CTA is neg for PE. Abdominal CT is normal with minimal post op changes. No collections, clots or other issues. Patient has atelectasis R base and needs to breathe and walk. 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 Nothing to add from surgery point. 12/26/2017 Patient better Pain controlled and respiratory effort improved A-fib converted to normal SR. troponins declining Abdomen and chest CT negative for either PE or any collections Tolerates diet DC ADOLFO Patient can go home from my point anytime. FU with me 2 weeks 12/27/2017 Patient hemodynamically stable Pain much better tolerated and patient taking deep breaths Hemoglobin 8.1 g/dL which is essentially 1.4 g drop over 24 hours with all the hydration quite acceptable Patient is not bleeding based on clinical indices and CT scan Can be discharged any time Objective: Vital Signs Date Time Temp Pulse Resp B/P (MAP) Pulse Ox O2 Delivery O2 Flow Rate FiO2 12/27/17 11:07 99.5 74 20 125/74 (91) 93 12/27/17 08:00 87 12/27/17 07:40 96 Nasal Cannula 2.50 12/27/17 07:26 100.7 91 20 165/88 (113) 93 12/27/17 05:14 18 12/27/17 04:00 99.7 84 18 149/81 (103) 94 12/27/17 00:00 98.8 72 18 132/62 (85) 95 12/26/17 21:24 94 Nasal Cannula 2.00 12/26/17 20:00 107 12/26/17 20:00 101.6 102 18 132/71 (91) 94 12/26/17 18:00 88 43 136/76 (96) 96 12/26/17 16:00 98.8 82 26 127/74 (91) 95 12/26/17 15:00 88 26 142/78 (99) Labs: Laboratory Tests Test 12/27/17 05:43 12/27/17 08:41 White Blood Count 13.7 TH/MM3 (4.0-11.0) Red Blood Count 2.61 MIL/MM3 (4.50-5.90) Hemoglobin 7.9 GM/DL (13.0-17.0) Hematocrit 23.7 % (39.0-51.0) Mean Corpuscular Volume 90.3 FL (80.0-100.0) Mean Corpuscular Hemoglobin 30.5 PG (27.0-34.0) Mean Corpuscular Hemoglobin Concent 33.7 % (32.0-36.0) Red Cell Distribution Width 14.9 % (11.6-17.2) Platelet Count 185 TH/MM3 (150-450) Mean Platelet Volume 9.7 FL (7.0-11.0) Neutrophils (%) (Auto) 77.8 % (16.0-70.0) Lymphocytes (%) (Auto) 9.1 % (9.0-44.0) Monocytes (%) (Auto) 10.6 % (0.0-8.0) Eosinophils (%) (Auto) 2.1 % (0.0-4.0) Basophils (%) (Auto) 0.4 % (0.0-2.0) Neutrophils # (Auto) 10.6 TH/MM3 (1.8-7.7) Lymphocytes # (Auto) 1.2 TH/MM3 (1.0-4.8) Monocytes # (Auto) 1.5 TH/MM3 (0-0.9) Eosinophils # (Auto) 0.3 TH/MM3 (0-0.4) Basophils # (Auto) 0.1 TH/MM3 (0-0.2) CBC Comment DIFF FINAL Differential Comment Blood Urea Nitrogen 11 MG/DL (7-18) Creatinine 0.85 MG/DL (0.60-1.30) Random Glucose 104 MG/DL (74-106) Total Protein 5.9 GM/DL (6.4-8.2) Albumin 2.7 GM/DL (3.4-5.0) Calcium Level 7.9 MG/DL (8.5-10.1) Alkaline Phosphatase 126 U/L (45-117) Aspartate Amino Transf (AST/SGOT) 29 U/L (15-37) Alanine Aminotransferase (ALT/SGPT) 40 U/L (12-78) Total Bilirubin 1.0 MG/DL (0.2-1.0) Sodium Level 140 MEQ/L (136-145) Potassium Level 4.0 MEQ/L (3.5-5.1) Chloride Level 105 MEQ/L (98-107) Carbon Dioxide Level 26.2 MEQ/L (21.0-32.0) Anion Gap 9 MEQ/L (5-15) Estimat Glomerular Filtration Rate 89 ML/MIN (>89) Lactic Acid Level 0.9 mmol/L (0.4-2.0) Result Diagram: 12/27/17 0543 12/27/17 0543 Lorraine Sesay MD Dec 27, 2017 14:48
[2017-12-27 15:31] LABS: HEMATOCRIT 23.1 % (39.0-51.0); HEMOGLOBIN 7.9 GM/DL (13.0-17.0)
[2017-12-27] MEDS: cefTRIAXone INJ 2,000 MG in SODIUM CHLORIDE 0.9% INJ 100 ML IV SCH (20:31)
[2017-12-27] MEDS ORDERED: METO-309 PO (22:08)
[2017-12-27] MEDS ORDERED: OXYC1TAB35 PO (22:08)
[2017-12-27 22:24] LABS: AUTOMATED NEUTROPHIL # 10.8 TH/MM3 (1.8-7.7); BASOPHIL # 0.1 TH/MM3 (0-0.2); EOSINOPHIL # 0.4 TH/MM3 (0-0.4); EOSINOPHIL % 3.1 % (0.0-4.0); HEMATOCRIT 23.8 % (39.0-51.0); HEMOGLOBIN 8.1 GM/DL (13.0-17.0); LYMPH % 10.9 % (9.0-44.0); LYMPHOCYTE # 1.5 TH/MM3 (1.0-4.8); MEAN CELL VOLUME 91.6 FL (80.0-100.0); MEAN CORPUSCULAR HEMOGLOBIN 31.3 PG (27.0-34.0); MEAN CORPUSCULAR HGB CONC 34.2 % (32.0-36.0); MEAN PLATELET VOLUME 8.9 FL (7.0-11.0); MONO % 9.1 % (0.0-8.0); MONOCYTE # 1.3 TH/MM3 (0-0.9); NEUT % 75.9 % (16.0-70.0); PLATELET COUNT 207 TH/MM3 (150-450); RED CELL DISTRIBUTION WIDTH 14.9 % (11.6-17.2); WHITE BLOOD COUNT 14.1 TH/MM3 (4.0-11.0)
[2017-12-28] VITALS: BP 141/62; PULSE 87; RESP 20; TEMP 99.7; O2SAT 97
[2017-12-28] MEDS: oxyCODONE/ACETAMINOPHEN 7.5 MG/325 MG TAB PO PRN ×3 (01:15→09:41)
[2017-12-28 04:00] VITALS: BP 149/89; PULSE 76; RESP 20; TEMP 98.7; O2SAT 92
[2017-12-28 06:50] VITALS: RESP 20
[2017-12-28 07:45] VITALS: O2SAT 94
--- NOTE | 2017-12-28 07:56 | HHI.FF ---
Face to Face Verification Diagnosis: (1) Acute cholecystitis Physical Therapy Order: Evaluate and Treat, Improve ambulation, Strength and gait training Home Health Nursing Order: Medical education Signs/symptoms of disease process Medication education-adverse effect Nursing assessment with vital signs I have seen patient Larry Martinez on 12/28/17. My clinical findings support the need for the requested home health care services because: Ltd mobility - disease progression Deconditioned w/ increased weakness High risk of falls Infection w/ risk of complications I certify that my clinical findings support that this patient is homebound because: Post-op weakness Unable to use public transportation Huan Scanlon DO Dec 28, 2017 07:56
[2017-12-28] MEDS: SODIUM CHLORIDE 0.9% FLUSH 10 ML FLUSH IV FLUSH SCH (08:13)
[2017-12-28] MEDS: METOPROLOL TARTRATE 50 MG TAB PO SCH (08:13)
== END 2017-12-28 09:44 | disposition home health service (06) | DRG 417 ==
LOC: PHED 12:17 → PHEDA 17:33 → INTOOBSV 17:33 → OBSVTOIN 17:33 → PH3A 17:58 → PHICU 12-25 09:28 → PH3B 12-26 18:34
PROVIDERS: ADMIT Hospitalist; ATTEND Hospitalist
PROC: 0FT44ZZ Resection of Gallbladder, Percutaneous Endoscopic Approach (ICD-10-PCS; principal; 2017-12-24 12:23)
PROC: 30233N1 Transfusion of Nonautologous Red Blood Cells into Peripheral Vein, Percutaneous Approach (ICD-10-PCS; 2017-12-25)
DX: K80.66 Calculus of gallbladder and bile duct with acute and chronic cholecystitis without obstruction (principal); J96.00 Acute respiratory failure, unspecified whether with hypoxia or hypercapnia; I95.9 Hypotension, unspecified; I48.91 Unspecified atrial fibrillation; D62 Acute posthemorrhagic anemia; J44.9 Chronic obstructive pulmonary disease, unspecified; K74.60 Unspecified cirrhosis of liver; F11.20 Opioid dependence, uncomplicated; J98.11 Atelectasis; R63.0 Anorexia; E78.00 Pure hypercholesterolemia, unspecified; E78.5 Hyperlipidemia, unspecified; I10 Essential (primary) hypertension; R00.0 Tachycardia, unspecified; M19.90 Unspecified osteoarthritis, unspecified site; F41.9 Anxiety disorder, unspecified; F32.9 Major depressive disorder, single episode, unspecified; Z86.19 Personal history of other infectious and parasitic diseases; Z86.73 Personal history of transient ischemic attack (TIA), and cerebral infarction without residual deficits; Z87.891 Personal history of nicotine dependence
CPT/HCPCS: 36430; 71045; 71275; 74177; 76705; 80053; 80076; 81001; 82248; 83605; 83690; 84484; 85014; 85018; 85025; 85384; 85610; 85730; 86850; 86900; 86901; 86920; 88304; 93005; 94150; 94618; J0696; J0744; J1170; J1885; J2060; J2175; J3010; J7030; J7120; P9016; Q9967